=== PATIENT | male | born 1935 | race Caucasian/White ===

== ENCOUNTER 2019-02-21 07:27 | Inpatient (IN) ==
[2019-02-21] MEDS ORDERED: PANTOPRAZOLE 40 MG VIAL IV STA (09:09)
[2019-02-21] MEDS ORDERED: SODIUM CHLORIDE 0.9% 500 ML IV STA (09:09)
[2019-02-21 09:23] LABS: Basophils # 0.1 10*3/uL (0.0-0.2); Basophils % 0.9 % (0.0-0.8); Eosinophils # 0.1 10*3/uL (0.0-0.87); Eosinophils % 1.1 % (0.00-10.9); Hematocrit 36.3 VOL% (42.0-52.0); Hemoglobin 11.3 GM/DL (14.0-18.0); Immature Granulocytes % 0.5 %; Immature Granulocytes Absolute 0.05 #; Lymphocytes # 1.7 10*3/uL (1.4-4.0); Lymphocytes % 16.1 % (21.2-54.2); Mean Corpuscular HGB Conc 31.1 GM/DL (32-36); Mean Corpuscular Volume 80.7 FL (87-102); Mean Platelet Volume 9.1 FL (9.6-12.0); Monocytes % 6.4 % (1.7-12.7); Platelet Count 324 T/CUMM (130-400); Red Cell Distribution Width 13.5 % (9.3-17.3); White Blood Count 10.6 T/CUMM (4-12)
[2019-02-21 09:34] LABS: PT Patient Result 10.4 SECS; Partial Thromboplastin Time 27.1 SECS (0-40)
[2019-02-21 09:55] LABS: Albumin 3.5 G/DL (3.4-5.0); Bilirubin,Total 0.7 MG/DL (0.2-1.0); Calcium 9.8 MG/DL (8.5-10.1); Osmolality,Calculated 275.8 MOS/KG (273-304); Total Protein 7.9 G/DL (6.4-8.3)
[2019-02-21] MEDS ORDERED: ACETAMINOPHEN 325 MG TABLET PO PRN (12:05)
[2019-02-21] MEDS ORDERED: ONDANSETRON 4 MG/2 ML VIAL IV PRN (12:05)
[2019-02-21] MEDS: SODIUM CHLORIDE 0.9% 1,000 ML IV SCH (12:47)
[2019-02-21] MEDS: SIMVASTATIN 20 MG TABLET PO SCH (22:01)
[2019-02-21] MEDS: DOCUSATE SODIUM 100 MG CAPSULE PO SCH (22:01)
[2019-02-21 22:24] LABS: Apearance,Urine CLEAR (Clear); Bilirubin,Urine Negative (Negative); Blood, Urine Negative (Negative); Glucose,Urine (UA) Negative (Negative); Ketones,Urine Negative (Negative); Mucus,Urine Occasional /LPF (Occasional); Nitrite,Urine Negative (Negative); Protein,Urine Negative; RBC,Urine 1 /HPF (0-4); Urine Color Yellow (Yellow); Urine Specific Gravity 1.018 (1.001-1.035); Urine Urobilinogen < 2.0 EU/DL (0.2-1.0)
[2019-02-22] MEDS: SODIUM CHLORIDE 0.9% 1,000 ML IV SCH ×2 (00:33→05:19)
[2019-02-22 05:51] LABS: Basophils # 0.1 10*3/uL (0.0-0.2); Basophils % 0.8 % (0.0-0.8); Eosinophils # 0.3 10*3/uL (0.0-0.87); Eosinophils % 3.3 % (0.00-10.9); Hematocrit 29.4 VOL% (42.0-52.0); Hemoglobin 9.3 GM/DL (14.0-18.0); Immature Granulocytes % 0.4 %; Immature Granulocytes Absolute 0.04 #; Lymphocytes # 1.7 10*3/uL (1.4-4.0); Lymphocytes % 18.7 % (21.2-54.2); Mean Corpuscular HGB Conc 31.6 GM/DL (32-36); Mean Corpuscular Volume 80.1 FL (87-102); Mean Platelet Volume 9.6 FL (9.6-12.0); Neutrophils % 68.8 % (38.7-73.9); Platelet Count 262 T/CUMM (130-400); Red Blood Count 3.67 MC/CUMM (3.8-5.5); Red Cell Distribution Width 13.5 % (9.3-17.3); White Blood Count 9.1 T/CUMM (4-12)
[2019-02-22 06:27] LABS: Albumin 2.8 G/DL (3.4-5.0); Bilirubin,Total 0.5 MG/DL (0.2-1.0); Calcium 8.5 MG/DL (8.5-10.1); Osmolality,Calculated 276.7 MOS/KG (273-304); Risk Ratio 4.85; Thyroid Stimulating Hormone 3.71 uIU/ml (0.358-3.74); Total Protein 6.5 G/DL (6.4-8.3)
[2019-02-22] MEDS ORDERED: LACTATED RINGERS 1,000 ML IV SCH (08:00)
[2019-02-22] MEDS ORDERED: POTASSIUM CHLORIDE INJ 20 MEQ in SODIUM CHLORIDE 0.9% 1,000 ML IV SCH (08:48)
[2019-02-22] MEDS: DOCUSATE SODIUM 100 MG CAPSULE PO SCH ×2 (09:01→20:30)
[2019-02-22] MEDS: PANTOPRAZOLE 40 MG TABLET PO SCH (09:06)
[2019-02-22] MEDS: LISINOPRIL/HCTZ 20-12.5 MG TABLET PO SCH (09:06)
[2019-02-22] MEDS ORDERED: LIDOCAINE 100 MG/5 ML SYRINGE ONE (10:00)
[2019-02-22] MEDS ORDERED: PROPOFOL 200 MG/20 ML VIAL IV ONE (10:00)
[2019-02-22] MEDS: SODIUM CHLOR 0.9% KCL 20 MEQ 20 MEQ/1,000 ML BAG IV SCH ×2 (13:24→21:24)
[2019-02-22] MEDS: SIMVASTATIN 20 MG TABLET PO SCH (20:30)
[2019-02-23 04:25] LABS: Basophils # 0.1 10*3/uL (0.0-0.2); Basophils % 0.8 % (0.0-0.8); Eosinophils # 0.3 10*3/uL (0.0-0.87); Eosinophils % 3.5 % (0.00-10.9); Hematocrit 29.7 VOL% (42.0-52.0); Hemoglobin 9.2 GM/DL (14.0-18.0); Immature Granulocytes % 0.4 %; Immature Granulocytes Absolute 0.04 #; Lymphocytes # 1.3 10*3/uL (1.4-4.0); Lymphocytes % 14.3 % (21.2-54.2); Mean Corpuscular Volume 80.9 FL (87-102); Mean Platelet Volume 9.4 FL (9.6-12.0); Monocytes % 8.1 % (1.7-12.7); Neutrophils % 72.9 % (38.7-73.9); Platelet Count 228 T/CUMM (130-400); Red Blood Count 3.67 MC/CUMM (3.8-5.5); Red Cell Distribution Width 13.6 % (9.3-17.3); White Blood Count 8.9 T/CUMM (4-12)
[2019-02-23 04:54] LABS: Osmolality,Calculated 280.4 MOS/KG (273-304)
[2019-02-23] MEDS: SODIUM CHLOR 0.9% KCL 20 MEQ 20 MEQ/1,000 ML BAG IV SCH ×4 (05:35→20:55)
[2019-02-23] MEDS: DOCUSATE SODIUM 100 MG CAPSULE PO SCH ×2 (09:30→20:17)
[2019-02-23] MEDS: PANTOPRAZOLE 40 MG TABLET PO SCH (09:30)
[2019-02-23] MEDS: LISINOPRIL/HCTZ 20-12.5 MG TABLET PO SCH (09:30)
[2019-02-23] MEDS: SIMVASTATIN 20 MG TABLET PO SCH (20:18)
[2019-02-24 06:06] LABS: Basophils # 0.1 10*3/uL (0.0-0.2); Basophils % 0.7 % (0.0-0.8); Eosinophils # 0.3 10*3/uL (0.0-0.87); Eosinophils % 3.7 % (0.00-10.9); Hematocrit 29.2 VOL% (42.0-52.0); Immature Granulocytes % 0.3 %; Immature Granulocytes Absolute 0.03 #; Lymphocytes # 1.2 10*3/uL (1.4-4.0); Lymphocytes % 13.7 % (21.2-54.2); Mean Corpuscular HGB Conc 30.8 GM/DL (32-36); Mean Platelet Volume 9.6 FL (9.6-12.0); Monocytes % 9.4 % (1.7-12.7); Neutrophils % 72.2 % (38.7-73.9); Platelet Count 224 T/CUMM (130-400); Red Blood Count 3.56 MC/CUMM (3.8-5.5); Red Cell Distribution Width 13.7 % (9.3-17.3); White Blood Count 8.6 T/CUMM (4-12)
[2019-02-24] MEDS: SODIUM CHLOR 0.9% KCL 20 MEQ 20 MEQ/1,000 ML BAG IV SCH (06:40)
[2019-02-24] MEDS: LISINOPRIL/HCTZ 20-12.5 MG TABLET PO SCH (09:03)
[2019-02-24] MEDS: PANTOPRAZOLE 40 MG TABLET PO SCH (09:03)
[2019-02-24] MEDS: DOCUSATE SODIUM 100 MG CAPSULE PO SCH (09:03)
[2019-02-24] MEDS: LANSOPRAZOLE ODT 30 MG TABLET PO SCH ×2 (12:39→21:00)
[2019-02-24] MEDS ORDERED: BISACODYL 5 MG TABLET PO ONE (14:00)
[2019-02-24] MEDS ORDERED: POLYETHYLENE GLYCOL POWDER 255 GM BOTTLE PO ONE (15:00)
[2019-02-24] MEDS: DEXTROSE 5% NACL 0.45% 1,000 ML IV SCH (16:30)
[2019-02-24] MEDS: SIMVASTATIN 20 MG TABLET PO SCH (20:59)
[2019-02-24 21:17] LABS: Apearance,Urine CLEAR (Clear); Bacteria,Urine Occasional /HPF (Few); Bilirubin,Urine Negative (Negative); Blood, Urine Negative (Negative); Glucose,Urine (UA) Negative (Negative); Ketones,Urine Negative (Negative); Mucus,Urine Occasional /LPF (Occasional); Nitrite,Urine Negative (Negative); Protein,Urine Negative; RBC,Urine <1 /HPF (0-4); Squamous Epithelial Cell,Urine Occasional /HPF (0-10); Urine Color Yellow (Yellow); Urine Specific Gravity 1.009 (1.001-1.035); Urine Urobilinogen < 2.0 EU/DL (0.2-1.0); WBC,Urine <1 /HPF (0-6)
[2019-02-25] MEDS: DEXTROSE 5% NACL 0.45% 1,000 ML IV SCH (03:30)
[2019-02-25 05:20] LABS: Basophils # 0.1 10*3/uL (0.0-0.2); Basophils % 0.5 % (0.0-0.8); Eosinophils # 0.1 10*3/uL (0.0-0.87); Eosinophils % 1.3 % (0.00-10.9); Hematocrit 26.4 VOL% (42.0-52.0); Hemoglobin 8.3 GM/DL (14.0-18.0); Immature Granulocytes % 0.5 %; Immature Granulocytes Absolute 0.05 #; Lymphocytes # 0.7 10*3/uL (1.4-4.0); Lymphocytes % 6.6 % (21.2-54.2); Mean Corpuscular HGB Conc 31.4 GM/DL (32-36); Mean Corpuscular Volume 79.3 FL (87-102); Mean Platelet Volume 9.7 FL (9.6-12.0); Monocytes % 7.4 % (1.7-12.7); Neutrophils % 83.7 % (38.7-73.9); Platelet Count 216 T/CUMM (130-400); Red Blood Count 3.33 MC/CUMM (3.8-5.5); Red Cell Distribution Width 13.8 % (9.3-17.3); White Blood Count 9.8 T/CUMM (4-12)
[2019-02-25 05:57] LABS: Albumin 2.5 G/DL (3.4-5.0); Bilirubin,Total 0.8 MG/DL (0.2-1.0); Osmolality,Calculated 279.5 MOS/KG (273-304); Total Protein 5.8 G/DL (6.4-8.3)
[2019-02-25] MEDS ORDERED: MAGNESIUM CITRATE 300 ML BOTTLE PO ONE (06:00)
[2019-02-25] MEDS ORDERED: POTASSIUM CHLORIDE INJ 20 MEQ in DEXTROSE 5% NACL 0.45% 1,000 ML IV SCH (07:54)
[2019-02-25] MEDS: LANSOPRAZOLE ODT 30 MG TABLET PO SCH ×2 (09:26→20:59)
[2019-02-25] MEDS: DEXT 5% NACL 0.45% KCL 20 MEQ 20 MEQ/1,000 ML BAG IV SCH ×2 (09:35→18:45)
[2019-02-25] MEDS ORDERED: PROPOFOL 200 MG/20 ML VIAL IV ONE (10:49)
[2019-02-25] MEDS ORDERED: PHENYLEPHRINE 1 MG/10 ML SYRINGE IV ONE (10:49)
[2019-02-25] MEDS ORDERED: LIDOCAINE 1% 5 ML VIAL ONE (10:49)
[2019-02-25] MEDS ORDERED: VANCOMYCIN INJ 1,000 MG in SODIUM CHLORIDE 0.9% 250 ML IV ONE ×2 (10:52→11:00)
[2019-02-25] MEDS: TAMSULOSIN 0.4 MG CAPSULE PO SCH ×2 (15:42→20:57)
[2019-02-25] MEDS: DUTASTERIDE 0.5 MG CAPSULE PO SCH (15:42)
[2019-02-25] MEDS: POTASSIUM CHLORIDE RIDER 10 MEQ in PREMIX 1 EACH IV PRN ×4 (15:47→22:41)
[2019-02-25] MEDS: SIMVASTATIN 20 MG TABLET PO SCH (20:58)
[2019-02-26 04:50] LABS: Basophils % 0.5 % (0.0-0.8); Eosinophils # 0.2 10*3/uL (0.0-0.87); Eosinophils % 2.6 % (0.00-10.9); Hematocrit 23.2 VOL% (42.0-52.0); Hemoglobin 7.3 GM/DL (14.0-18.0); Immature Granulocytes % 0.5 %; Immature Granulocytes Absolute 0.03 #; Lymphocytes # 0.9 10*3/uL (1.4-4.0); Lymphocytes % 13.3 % (21.2-54.2); Mean Corpuscular HGB Conc 31.5 GM/DL (32-36); Mean Corpuscular Volume 79.7 FL (87-102); Mean Platelet Volume 9.8 FL (9.6-12.0); Monocytes % 13.3 % (1.7-12.7); Neutrophils % 69.8 % (38.7-73.9); Platelet Count 172 T/CUMM (130-400); Red Blood Count 2.91 MC/CUMM (3.8-5.5); Red Cell Distribution Width 13.8 % (9.3-17.3); White Blood Count 6.6 T/CUMM (4-12)
[2019-02-26] MEDS: POTASSIUM CHLORIDE RIDER 10 MEQ in PREMIX 1 EACH IV PRN ×2 (05:00→06:28)
[2019-02-26] MEDS: DEXT 5% NACL 0.45% KCL 20 MEQ 20 MEQ/1,000 ML BAG IV SCH ×2 (05:00→18:37)
[2019-02-26 05:15] LABS: Calcium 7.6 MG/DL (8.5-10.1); Osmolality,Calculated 274.8 MOS/KG (273-304)
[2019-02-26] MEDS ORDERED: LIDOCAINE 1%/EPI INJ 20 ML VIAL ONE (09:16)
[2019-02-26] MEDS ORDERED: BUPIVACAINE MPF 0.25% /EPI 30 ML VIAL ONE (09:16)
[2019-02-26] MEDS ORDERED: LACTATED RINGERS 1,000 ML IV SCH (10:00)
[2019-02-26] MEDS ORDERED: fentaNYL 100 MCG/2 ML VIAL ONE (11:29)
[2019-02-26] MEDS ORDERED: PROPOFOL 200 MG/20 ML VIAL IV ONE (11:29)
[2019-02-26] MEDS ORDERED: SEVOFLURANE 1 UNIT/15 MINUTE INH ONE (11:29)
[2019-02-26] MEDS ORDERED: ONDANSETRON 4 MG/2 ML VIAL ONE (11:30)
[2019-02-26] MEDS ORDERED: KETAMINE 500 MG/10 ML VIAL ONE (11:30)
[2019-02-26] MEDS ORDERED: DEXAMETHASONE 4 MG/1 ML VIAL ONE (11:30)
[2019-02-26] MEDS ORDERED: ePHEDrine 50 MG/ML AMP ONE (11:30)
[2019-02-26] MEDS ORDERED: ETOMIDATE 40 MG/20 ML VIAL IV ONE (11:31)
[2019-02-26] MEDS ORDERED: PHENYLEPHRINE 1 MG/10 ML SYRINGE IV ONE (11:31)
[2019-02-26] MEDS: LANSOPRAZOLE ODT 30 MG TABLET PO SCH ×2 (12:55→22:12)
[2019-02-26] MEDS: DUTASTERIDE 0.5 MG CAPSULE PO SCH (12:55)
[2019-02-26] MEDS: TAMSULOSIN 0.4 MG CAPSULE PO SCH ×2 (12:55→22:11)
[2019-02-26] MEDS: SIMVASTATIN 20 MG TABLET PO SCH (22:11)
[2019-02-27 04:51] LABS: Basophils % 0.1 % (0.0-0.8); Eosinophils % 0.2 % (0.00-10.9); Hematocrit 23.7 VOL% (42.0-52.0); Hemoglobin 7.7 GM/DL (14.0-18.0); Immature Granulocytes % 0.5 %; Immature Granulocytes Absolute 0.04 #; Lymphocytes # 0.9 10*3/uL (1.4-4.0); Lymphocytes % 10.8 % (21.2-54.2); Mean Corpuscular HGB Conc 32.5 GM/DL (32-36); Mean Platelet Volume 10.4 FL (9.6-12.0); Monocytes % 9.1 % (1.7-12.7); Neutrophils % 79.3 % (38.7-73.9); Platelet Count 189 T/CUMM (130-400); Red Cell Distribution Width 13.9 % (9.3-17.3); White Blood Count 8.7 T/CUMM (4-12)
[2019-02-27] MEDS: DEXT 5% NACL 0.45% KCL 20 MEQ 20 MEQ/1,000 ML BAG IV SCH ×2 (04:55→19:02)
[2019-02-27 05:34] LABS: Albumin 2.1 G/DL (3.4-5.0); Bilirubin,Total 1.1 MG/DL (0.2-1.0); Calcium 8.1 MG/DL (8.5-10.1); Osmolality,Calculated 277.5 MOS/KG (273-304); Total Protein 5.4 G/DL (6.4-8.3)
[2019-02-27] MEDS: DUTASTERIDE 0.5 MG CAPSULE PO SCH (08:33)
[2019-02-27] MEDS: TAMSULOSIN 0.4 MG CAPSULE PO SCH ×2 (08:33→20:17)
[2019-02-27] MEDS: LANSOPRAZOLE ODT 30 MG TABLET PO SCH ×2 (08:33→20:18)
[2019-02-27] MEDS: SIMVASTATIN 20 MG TABLET PO SCH (20:17)
[2019-02-28] MEDS: DEXT 5% NACL 0.45% KCL 20 MEQ 20 MEQ/1,000 ML BAG IV SCH ×2 (01:27→11:51)
[2019-02-28 06:03] LABS: Basophils # 0.1 10*3/uL (0.0-0.2); Basophils % 0.6 % (0.0-0.8); Eosinophils # 0.5 10*3/uL (0.0-0.87); Eosinophils % 5.1 % (0.00-10.9); Hematocrit 24.5 VOL% (42.0-52.0); Hemoglobin 7.9 GM/DL (14.0-18.0); Immature Granulocytes % 0.6 %; Immature Granulocytes Absolute 0.05 #; Lymphocytes # 1.5 10*3/uL (1.4-4.0); Lymphocytes % 16.9 % (21.2-54.2); Mean Corpuscular HGB Conc 32.2 GM/DL (32-36); Mean Corpuscular Volume 78.5 FL (87-102); Mean Platelet Volume 10.1 FL (9.6-12.0); Monocytes % 9.4 % (1.7-12.7); Neutrophils % 67.4 % (38.7-73.9); Platelet Count 232 T/CUMM (130-400); Red Blood Count 3.12 MC/CUMM (3.8-5.5); Red Cell Distribution Width 13.8 % (9.3-17.3); White Blood Count 8.8 T/CUMM (4-12)
[2019-02-28 06:27] LABS: Eosinophils 2 % (0-10); Lymphocytes 15 % (20-55); Segmented Neutrophils 80 % (50-85); Total Cells Counted 100
[2019-02-28 06:28] LABS: Anisocytosis Slight; Microcytosis 2+
[2019-02-28 06:29] LABS: Polychromasia Slight
[2019-02-28 06:31] LABS: Hypochromasia Slight; Platelet Estimate Normal
[2019-02-28] MEDS ORDERED: LIDOCAINE 2% TOP JELLY 20 ML VIAL INTRAURETH ONE ×2 (07:17→08:17)
[2019-02-28] MEDS: TAMSULOSIN 0.4 MG CAPSULE PO SCH ×2 (09:29→20:29)
[2019-02-28] MEDS: DUTASTERIDE 0.5 MG CAPSULE PO SCH (09:29)
[2019-02-28] MEDS: LANSOPRAZOLE ODT 30 MG TABLET PO SCH ×2 (09:29→20:30)
[2019-02-28] MEDS ORDERED: VANCOMYCIN INJ 1,500 MG in SODIUM CHLORIDE 0.9% 500 ML IV ONE (10:00)
[2019-02-28] MEDS: traZODone 50 MG TABLET PO PRN (20:28)
[2019-02-28] MEDS: SIMVASTATIN 20 MG TABLET PO SCH (20:29)
[2019-02-28] MEDS: VANCOMYCIN INJ 1,250 MG in SODIUM CHLORIDE 0.9% 250 ML IV SCH (22:19)
[2019-03-01] MEDS: DEXT 5% NACL 0.45% KCL 20 MEQ 20 MEQ/1,000 ML BAG IV SCH ×3 (04:27→18:14)
[2019-03-01] MEDS: DUTASTERIDE 0.5 MG CAPSULE PO SCH (09:16)
[2019-03-01] MEDS: VANCOMYCIN INJ 1,250 MG in SODIUM CHLORIDE 0.9% 250 ML IV SCH ×2 (09:16→21:24)
[2019-03-01] MEDS: LANSOPRAZOLE ODT 30 MG TABLET PO SCH ×2 (09:16→20:40)
[2019-03-01] MEDS: TAMSULOSIN 0.4 MG CAPSULE PO SCH ×2 (09:16→20:40)
[2019-03-01] MEDS: traZODone 50 MG TABLET PO PRN (20:40)
[2019-03-01] MEDS: SIMVASTATIN 20 MG TABLET PO SCH (20:40)
[2019-03-02] MEDS: DEXT 5% NACL 0.45% KCL 20 MEQ 20 MEQ/1,000 ML BAG IV SCH ×2 (06:15→22:00)
[2019-03-02] MEDS: DUTASTERIDE 0.5 MG CAPSULE PO SCH (10:12)
[2019-03-02] MEDS: VANCOMYCIN INJ 1,250 MG in SODIUM CHLORIDE 0.9% 250 ML IV SCH (10:12)
[2019-03-02] MEDS: LANSOPRAZOLE ODT 30 MG TABLET PO SCH ×2 (10:12→20:48)
[2019-03-02] MEDS: TAMSULOSIN 0.4 MG CAPSULE PO SCH ×2 (10:12→20:48)
[2019-03-02 13:21] LABS: Basophils # 0.1 10*3/uL (0.0-0.2); Basophils % 0.5 % (0.0-0.8); Eosinophils # 0.3 10*3/uL (0.0-0.87); Eosinophils % 2.9 % (0.00-10.9); Hematocrit 23.6 VOL% (42.0-52.0); Hemoglobin 7.6 GM/DL (14.0-18.0); Immature Granulocytes % 0.6 %; Immature Granulocytes Absolute 0.06 #; Lymphocytes # 1.5 10*3/uL (1.4-4.0); Lymphocytes % 14.8 % (21.2-54.2); Mean Corpuscular HGB Conc 32.2 GM/DL (32-36); Mean Corpuscular Volume 79.5 FL (87-102); Mean Platelet Volume 9.7 FL (9.6-12.0); Monocytes % 5.9 % (1.7-12.7); Neutrophils % 75.3 % (38.7-73.9); Platelet Count 228 T/CUMM (130-400); Red Blood Count 2.97 MC/CUMM (3.8-5.5); White Blood Count 10.1 T/CUMM (4-12)
[2019-03-02] MEDS ORDERED: SODIUM CHLORIDE 0.9% 1,000 ML IV PRN (14:00)
[2019-03-02] MEDS: traZODone 50 MG TABLET PO PRN (20:48)
[2019-03-02] MEDS: SIMVASTATIN 20 MG TABLET PO SCH (20:48)
[2019-03-03] MEDS: DEXT 5% NACL 0.45% KCL 20 MEQ 20 MEQ/1,000 ML BAG IV SCH ×3 (03:34→23:22)
[2019-03-03] MEDS: VANCOMYCIN INJ 1,250 MG in SODIUM CHLORIDE 0.9% 250 ML IV SCH ×2 (03:35→23:23)
[2019-03-03 05:05] LABS: Basophils # 0.1 10*3/uL (0.0-0.2); Basophils % 0.6 % (0.0-0.8); Eosinophils # 0.5 10*3/uL (0.0-0.87); Eosinophils % 5.8 % (0.00-10.9); Hematocrit 29.5 VOL% (42.0-52.0); Hemoglobin 9.3 GM/DL (14.0-18.0); Immature Granulocytes % 0.6 %; Immature Granulocytes Absolute 0.05 #; Lymphocytes # 1.5 10*3/uL (1.4-4.0); Lymphocytes % 16.4 % (21.2-54.2); Mean Corpuscular HGB Conc 31.5 GM/DL (32-36); Mean Corpuscular Volume 82.2 FL (87-102); Mean Platelet Volume 9.6 FL (9.6-12.0); Monocytes % 6.3 % (1.7-12.7); Neutrophils % 70.3 % (38.7-73.9); Platelet Count 229 T/CUMM (130-400); Red Blood Count 3.59 MC/CUMM (3.8-5.5); Red Cell Distribution Width 14.3 % (9.3-17.3); White Blood Count 8.8 T/CUMM (4-12)
[2019-03-03] MEDS: LANSOPRAZOLE ODT 30 MG TABLET PO SCH ×2 (11:27→20:27)
[2019-03-03] MEDS: TAMSULOSIN 0.4 MG CAPSULE PO SCH ×2 (11:27→20:26)
[2019-03-03] MEDS: DUTASTERIDE 0.5 MG CAPSULE PO SCH (11:27)
[2019-03-03] MEDS: SIMVASTATIN 20 MG TABLET PO SCH (20:26)
[2019-03-03] MEDS: traZODone 50 MG TABLET PO PRN (20:26)
[2019-03-04 05:14] LABS: Osmolality,Calculated 280.1 MOS/KG (273-304)
[2019-03-04] MEDS: LANSOPRAZOLE ODT 30 MG TABLET PO SCH ×2 (08:39→20:33)
[2019-03-04] MEDS: POTASSIUM CHLORIDE 20 MEQ TABLET PO PRN ×2 (08:39→16:41)
[2019-03-04] MEDS: DUTASTERIDE 0.5 MG CAPSULE PO SCH (08:39)
[2019-03-04] MEDS: TAMSULOSIN 0.4 MG CAPSULE PO SCH ×2 (08:39→20:33)
[2019-03-04] MEDS: DEXT 5% NACL 0.45% KCL 20 MEQ 20 MEQ/1,000 ML BAG IV SCH (12:31)
[2019-03-04] MEDS: VANCOMYCIN INJ 1,250 MG in SODIUM CHLORIDE 0.9% 250 ML IV SCH (16:40)
[2019-03-04] MEDS: traZODone 50 MG TABLET PO PRN (20:33)
[2019-03-04] MEDS: SIMVASTATIN 20 MG TABLET PO SCH (20:33)
[2019-03-05 04:44] LABS: Basophils # 0.1 10*3/uL (0.0-0.2); Basophils % 0.9 % (0.0-0.8); Eosinophils # 0.5 10*3/uL (0.0-0.87); Eosinophils % 6.3 % (0.00-10.9); Hematocrit 33.4 VOL% (42.0-52.0); Hemoglobin 10.3 GM/DL (14.0-18.0); Immature Granulocytes % 1.1 %; Immature Granulocytes Absolute 0.09 #; Lymphocytes # 1.3 10*3/uL (1.4-4.0); Lymphocytes % 15.2 % (21.2-54.2); Mean Corpuscular HGB Conc 30.8 GM/DL (32-36); Mean Corpuscular Volume 82.3 FL (87-102); Mean Platelet Volume 9.1 FL (9.6-12.0); Monocytes % 7.4 % (1.7-12.7); Neutrophils % 69.1 % (38.7-73.9); Platelet Count 318 T/CUMM (130-400); Red Blood Count 4.06 MC/CUMM (3.8-5.5); Red Cell Distribution Width 14.7 % (9.3-17.3); White Blood Count 8.5 T/CUMM (4-12)
[2019-03-05 04:45] LABS: Calcium 8.9 MG/DL (8.5-10.1); Osmolality,Calculated 278.3 MOS/KG (273-304)
[2019-03-05] MEDS: DEXT 5% NACL 0.45% KCL 20 MEQ 20 MEQ/1,000 ML BAG IV SCH ×2 (06:34→17:01)
[2019-03-05] MEDS: SULFAMETHOX/TRIMETHOPRIM 800-160 MG TABLET PO SCH ×2 (09:26→21:57)
[2019-03-05] MEDS: LANSOPRAZOLE ODT 30 MG TABLET PO SCH ×2 (09:26→21:57)
[2019-03-05] MEDS: TAMSULOSIN 0.4 MG CAPSULE PO SCH ×2 (09:26→21:57)
[2019-03-05] MEDS: DUTASTERIDE 0.5 MG CAPSULE PO SCH (09:27)
[2019-03-05] MEDS: traZODone 50 MG TABLET PO PRN (21:56)
[2019-03-05] MEDS: SIMVASTATIN 20 MG TABLET PO SCH (21:57)
[2019-03-06 04:51] LABS: Basophils # 0.1 10*3/uL (0.0-0.2); Eosinophils # 0.6 10*3/uL (0.0-0.87); Eosinophils % 8.3 % (0.00-10.9); Hematocrit 29.2 VOL% (42.0-52.0); Hemoglobin 9.3 GM/DL (14.0-18.0); Immature Granulocytes Absolute 0.07 #; Lymphocytes # 1.7 10*3/uL (1.4-4.0); Lymphocytes % 25.9 % (21.2-54.2); Mean Corpuscular HGB Conc 31.8 GM/DL (32-36); Mean Corpuscular Volume 81.8 FL (87-102); Mean Platelet Volume 8.9 FL (9.6-12.0); Monocytes % 7.9 % (1.7-12.7); Neutrophils % 55.9 % (38.7-73.9); Platelet Count 266 T/CUMM (130-400); Red Blood Count 3.57 MC/CUMM (3.8-5.5); Red Cell Distribution Width 14.8 % (9.3-17.3); White Blood Count 6.7 T/CUMM (4-12)
[2019-03-06] MEDS: TAMSULOSIN 0.4 MG CAPSULE PO SCH ×2 (08:30→21:22)
[2019-03-06] MEDS: SULFAMETHOX/TRIMETHOPRIM 800-160 MG TABLET PO SCH ×2 (08:31→21:21)
[2019-03-06] MEDS: DUTASTERIDE 0.5 MG CAPSULE PO SCH (08:31)
[2019-03-06] MEDS: LANSOPRAZOLE ODT 30 MG TABLET PO SCH ×2 (08:31→21:22)
[2019-03-06] MEDS ORDERED: LIDOCAINE 2% TOP JELLY 20 ML VIAL INTRAURETH ONE (13:18)
[2019-03-06] MEDS: SIMVASTATIN 20 MG TABLET PO SCH (21:22)
[2019-03-07 04:54] LABS: Basophils # 0.1 10*3/uL (0.0-0.2); Eosinophils # 0.6 10*3/uL (0.0-0.87); Eosinophils % 8.2 % (0.00-10.9); Hematocrit 30.4 VOL% (42.0-52.0); Hemoglobin 9.8 GM/DL (14.0-18.0); Immature Granulocytes % 0.7 %; Immature Granulocytes Absolute 0.05 #; Lymphocytes # 1.7 10*3/uL (1.4-4.0); Lymphocytes % 24.4 % (21.2-54.2); Mean Corpuscular HGB Conc 32.2 GM/DL (32-36); Mean Corpuscular Volume 81.3 FL (87-102); Mean Platelet Volume 9.4 FL (9.6-12.0); Monocytes % 7.5 % (1.7-12.7); Neutrophils % 58.2 % (38.7-73.9); Platelet Count 280 T/CUMM (130-400); Red Blood Count 3.74 MC/CUMM (3.8-5.5); White Blood Count 6.9 T/CUMM (4-12)
[2019-03-07 05:27] LABS: Albumin 2.4 G/DL (3.4-5.0); Bilirubin,Total 0.4 MG/DL (0.2-1.0); Calcium 8.6 MG/DL (8.5-10.1); Osmolality,Calculated 274.5 MOS/KG (273-304); Total Protein 6.3 G/DL (6.4-8.3)
[2019-03-07] MEDS: SULFAMETHOX/TRIMETHOPRIM 800-160 MG TABLET PO SCH (09:08)
[2019-03-07] MEDS: TAMSULOSIN 0.4 MG CAPSULE PO SCH (09:08)
[2019-03-07] MEDS: DUTASTERIDE 0.5 MG CAPSULE PO SCH (09:08)
[2019-03-07] MEDS: LANSOPRAZOLE ODT 30 MG TABLET PO SCH (09:08)
[2019-03-07 12:20] VITALS: BP 125/83
== END 2019-03-07 13:13 | disposition home health service (06) | DRG 356 ==
LOC: N.ED 07:27 → N.EDINP 10:49 → N.2E 11:07
PROVIDERS: ADMIT Family Medicine; ATTEND Family Medicine
PROC: COLONBX (2019-02-25 13:50)

== ENCOUNTER 2019-04-08 21:02 | Inpatient (IN) ==
[2019-04-08] MEDS ORDERED: SODIUM CHLORIDE 0.9% 1,000 ML IV STA ×2 (21:38→23:50)
[2019-04-08] MEDS ORDERED: ONDANSETRON 4 MG/2 ML VIAL IV STA (21:38)
[2019-04-08] MEDS ORDERED: MECLIZINE 25 MG TABLET PO STA (21:38)
[2019-04-08 22:17] LABS: Basophils # 0.1 10*3/uL (0.0-0.2); Basophils % 0.3 % (0.0-0.8); Hematocrit 32.2 VOL% (42.0-52.0); Hemoglobin 10.2 GM/DL (14.0-18.0); Immature Granulocytes % 1.1 %; Immature Granulocytes Absolute 0.23 #; Lymphocytes # 0.8 10*3/uL (1.4-4.0); Lymphocytes % 3.9 % (21.2-54.2); Mean Corpuscular HGB Conc 31.7 GM/DL (32-36); Mean Corpuscular Volume 78.9 FL (87-102); Mean Platelet Volume 9.2 FL (9.6-12.0); Monocytes % 6.9 % (1.7-12.7); Neutrophils % 87.8 % (38.7-73.9); Platelet Count 310 T/CUMM (130-400); Red Blood Count 4.08 MC/CUMM (3.8-5.5); Red Cell Distribution Width 15.9 % (9.3-17.3); White Blood Count 21.3 T/CUMM (4-12)
[2019-04-08 22:25] LABS: PT Patient Result 10.8 SECS
[2019-04-08 22:36] LABS: Albumin 2.6 G/DL (3.4-5.0); Bilirubin,Total 0.5 MG/DL (0.2-1.0); Calcium 8.8 MG/DL (8.5-10.1); Osmolality,Calculated 272.4 MOS/KG (273-304); Total Protein 7.6 G/DL (6.4-8.3)
[2019-04-08 22:41] LABS: Band Neutrophils 8 % (0-10); Lymphocytes 7 % (20-55); Segmented Neutrophils 82 % (50-85); Total Cells Counted 100
[2019-04-08 22:42] LABS: Anisocytosis 1+; Platelet Estimate Adequate
[2019-04-08 23:57] LABS: Apearance,Urine CLOUDY (Clear); Bacteria,Urine Many /HPF (Few); Bilirubin,Urine Negative (Negative); Blood, Urine Small mg/dL (Negative); Glucose,Urine (UA) Negative (Negative); Hyaline Casts,Urine 9 /LPF (0-3); Ketones,Urine Negative (Negative); Mucus,Urine Occasional /LPF (Occasional); Nitrite,Urine Negative (Negative); Protein,Urine Negative; RBC,Urine 51 /HPF (0-4); Urine Color Amber (Yellow); Urine Specific Gravity 1.015 (1.001-1.035); WBC,Urine 180 /HPF (0-6)
[2019-04-09] MEDS ORDERED: MEROPENEM 1,000 MG in SODIUM CHLORIDE 0.9% 100 ML IV STA (00:01)
[2019-04-09] MEDS ORDERED: NOREPINEPHRINE 4 MG/4 ML VIAL IV ONE ×2 (01:09→01:10)
[2019-04-09] MEDS ORDERED: ACETAMINOPHEN 325 MG TABLET PO PRN (01:28)
[2019-04-09] MEDS ORDERED: NOREPINEPHRINE 8 MG in SODIUM CHLORIDE 0.9% 242 ML IV PRN (01:28)
[2019-04-09] MEDS ORDERED: ONDANSETRON 4 MG/2 ML VIAL IV PRN (01:28)
[2019-04-09] MEDS ORDERED: SODIUM CHLORIDE 0.9% 1,000 ML IV SCH (01:28)
[2019-04-09 04:27] LABS: Apearance,Urine CLEAR (Clear); Bacteria,Urine Occasional /HPF (Few); Bilirubin,Urine Negative (Negative); Blood, Urine Negative (Negative); Glucose,Urine (UA) Negative (Negative); Ketones,Urine Negative (Negative); Mucus,Urine Occasional /LPF (Occasional); Nitrite,Urine Positive (Negative); Protein,Urine Negative; RBC,Urine 2 /HPF (0-4); Squamous Epithelial Cell,Urine Occasional /HPF (0-10); Urine Color Yellow (Yellow); Urine Urobilinogen < 2.0 EU/DL (0.2-1.0); WBC,Urine 28 /HPF (0-6)
[2019-04-09 06:14] LABS: Basophils # 0.1 10*3/uL (0.0-0.2); Basophils % 0.3 % (0.0-0.8); Hematocrit 28.7 VOL% (42.0-52.0); Immature Granulocytes % 0.7 %; Immature Granulocytes Absolute 0.13 #; Lymphocytes % 5.7 % (21.2-54.2); Mean Corpuscular HGB Conc 31.4 GM/DL (32-36); Mean Corpuscular Volume 80.2 FL (87-102); Mean Platelet Volume 8.9 FL (9.6-12.0); Monocytes % 6.3 % (1.7-12.7); Platelet Count 237 T/CUMM (130-400); Red Blood Count 3.58 MC/CUMM (3.8-5.5); Red Cell Distribution Width 16.1 % (9.3-17.3); White Blood Count 17.8 T/CUMM (4-12)
[2019-04-09 06:44] LABS: Albumin 1.9 G/DL (3.4-5.0); Bilirubin,Total 0.7 MG/DL (0.2-1.0); Calcium 7.6 MG/DL (8.5-10.1); Osmolality,Calculated 276.8 MOS/KG (273-304)
[2019-04-09] MEDS ORDERED: POTASSIUM CHLORIDE INJ 20 MEQ in SODIUM CHLORIDE 0.9% 1,000 ML IV SCH (09:00)
[2019-04-09] MEDS: DOCUSATE SODIUM 100 MG CAPSULE PO SCH ×2 (09:22→22:00)
[2019-04-09] MEDS: DUTASTERIDE 0.5 MG CAPSULE PO SCH ×2 (09:22→22:00)
[2019-04-09] MEDS: PANTOPRAZOLE 40 MG TABLET PO SCH (09:22)
[2019-04-09] MEDS: TAMSULOSIN 0.4 MG CAPSULE PO SCH ×2 (09:22→22:00)
[2019-04-09] MEDS: SODIUM CHLOR 0.9% KCL 20 MEQ 20 MEQ/1,000 ML BAG IV SCH ×2 (09:23→17:18)
[2019-04-09] MEDS: NOREPINEPHRINE 8 MG in SODIUM CHLORIDE 0.9% 242 ML IV PRN (13:48)
[2019-04-09] MEDS: MEROPENEM 1,000 MG in SODIUM CHLORIDE 0.9% 100 ML IV SCH (14:11)
[2019-04-10] MEDS: SODIUM CHLOR 0.9% KCL 20 MEQ 20 MEQ/1,000 ML BAG IV SCH ×4 (01:29→18:43)
[2019-04-10] MEDS: MEROPENEM 1,000 MG in SODIUM CHLORIDE 0.9% 100 ML IV SCH (01:44)
[2019-04-10] MEDS: NOREPINEPHRINE 8 MG in SODIUM CHLORIDE 0.9% 242 ML IV PRN ×2 (04:16→23:05)
[2019-04-10 06:42] LABS: Albumin 1.7 G/DL (3.4-5.0); Bilirubin,Total 0.5 MG/DL (0.2-1.0); Calcium 7.7 MG/DL (8.5-10.1); Osmolality,Calculated 277.7 MOS/KG (273-304); Total Protein 5.8 G/DL (6.4-8.3)
[2019-04-10 06:43] LABS: Risk Ratio 3.43; VLDL CHOLESTEROL 15.6 MG/DL
[2019-04-10] MEDS: PANTOPRAZOLE 40 MG TABLET PO SCH (09:08)
[2019-04-10] MEDS: TAMSULOSIN 0.4 MG CAPSULE PO SCH ×2 (09:08→21:23)
[2019-04-10] MEDS: DUTASTERIDE 0.5 MG CAPSULE PO SCH ×2 (09:08→21:23)
[2019-04-10] MEDS: DOCUSATE SODIUM 100 MG CAPSULE PO SCH ×2 (09:08→21:23)
[2019-04-10] MEDS: LEVOFLOXACIN INJ 750 MG in PREMIX 1 EACH IV SCH (09:10)
[2019-04-11] MEDS: SODIUM CHLOR 0.9% KCL 20 MEQ 20 MEQ/1,000 ML BAG IV SCH (02:31)
[2019-04-11 05:20] LABS: Basophils # 0.1 10*3/uL (0.0-0.2); Basophils % 0.3 % (0.0-0.8); Eosinophils # 0.2 10*3/uL (0.0-0.87); Hemoglobin 9.6 GM/DL (14.0-18.0); Immature Granulocytes % 1.1 %; Immature Granulocytes Absolute 0.19 #; Lymphocytes # 1.5 10*3/uL (1.4-4.0); Lymphocytes % 8.8 % (21.2-54.2); Mean Corpuscular Volume 79.2 FL (87-102); Mean Platelet Volume 9.4 FL (9.6-12.0); Monocytes % 5.5 % (1.7-12.7); Neutrophils % 83.3 % (38.7-73.9); Platelet Count 259 T/CUMM (130-400); Red Blood Count 3.79 MC/CUMM (3.8-5.5); Red Cell Distribution Width 16.2 % (9.3-17.3); White Blood Count 17.2 T/CUMM (4-12)
[2019-04-11 05:37] LABS: Albumin 1.5 G/DL (3.4-5.0); Bilirubin,Total 0.8 MG/DL (0.2-1.0); Calcium 7.8 MG/DL (8.5-10.1); Osmolality,Calculated 279.5 MOS/KG (273-304); Total Protein 5.7 G/DL (6.4-8.3)
[2019-04-11] MEDS: DOCUSATE SODIUM 100 MG CAPSULE PO SCH ×2 (09:12→21:56)
[2019-04-11] MEDS: LEVOFLOXACIN INJ 750 MG in PREMIX 1 EACH IV SCH (09:12)
[2019-04-11] MEDS: DUTASTERIDE 0.5 MG CAPSULE PO SCH ×2 (09:12→22:02)
[2019-04-11] MEDS: PANTOPRAZOLE 40 MG TABLET PO SCH (09:12)
[2019-04-11] MEDS: TAMSULOSIN 0.4 MG CAPSULE PO SCH ×2 (09:12→21:56)
[2019-04-11] MEDS: METOPROLOL SUCCINATE XL 25 MG TABLET PO SCH ×2 (09:12→21:56)
[2019-04-11 09:36] LABS: Alanine Aminotransferase 27 U/L (16-61); Albumin 1.6 G/DL (3.4-5.0); Alkaline Phosphatase 93 U/L (45-117); Aspartate Amino Transferase 38 U/L (0-37); Bilirubin,Total < 0.39 MG/DL (0.2-1.0); Blood Urea Nitrogen 16 MG/DL (7-18); Calcium 8.2 MG/DL (8.5-10.1); Glucose 137 MG/DL (74-106); Osmolality,Calculated 281.4 MOS/KG (273-304)
[2019-04-11] MEDS: POTASSIUM CHLORIDE IV SCH ×2 (10:41→18:55)
[2019-04-11] MEDS: [UNRECOGNIZED DRUG - OTHER] IV SCH ×2 (10:41→18:55)
[2019-04-11] MEDS: MAGNESIUM SULF IV SCH ×2 (10:41→18:55)
[2019-04-11] MEDS ORDERED: HALOPERIDOL 5 MG/ML AMP IM ONE ×2 (14:00→15:37)
[2019-04-11] MEDS: ENOXAPARIN 30 MG/0.3 ML SYRINGE SUBCUT SCH (22:02)
[2019-04-12] MEDS ORDERED: METOPROLOL TARTRATE 5 MG/5 ML VIAL IV ONE ×2 (02:11→17:43)
[2019-04-12 04:33] LABS: Basophils % 0.3 % (0.0-0.8); Eosinophils # 0.1 10*3/uL (0.0-0.87); Eosinophils % 0.3 % (0.00-10.9); Hematocrit 28.5 VOL% (42.0-52.0); Hemoglobin 9.1 GM/DL (14.0-18.0); Immature Granulocytes % 1.3 %; Lymphocytes # 0.9 10*3/uL (1.4-4.0); Lymphocytes % 5.8 % (21.2-54.2); Mean Corpuscular HGB Conc 31.9 GM/DL (32-36); Mean Corpuscular Volume 78.3 FL (87-102); Mean Platelet Volume 9.2 FL (9.6-12.0); Neutrophils % 86.3 % (38.7-73.9); Platelet Count 275 T/CUMM (130-400); Red Blood Count 3.64 MC/CUMM (3.8-5.5); Red Cell Distribution Width 15.9 % (9.3-17.3); White Blood Count 15.8 T/CUMM (4-12)
[2019-04-12 04:51] LABS: Albumin 1.7 G/DL (3.4-5.0); Bilirubin,Total 0.6 MG/DL (0.2-1.0); Calcium 7.9 MG/DL (8.5-10.1); Osmolality,Calculated 281.4 MOS/KG (273-304); Total Protein 5.8 G/DL (6.4-8.3)
[2019-04-12 04:57] LABS: Band Neutrophils 3 % (0-10); Hypochromasia 1+; Lymphocytes 4 % (20-55); Ovalocytes Slight; Platelet Estimate Adequate; Segmented Neutrophils 87 % (50-85); Total Cells Counted 100
[2019-04-12] MEDS ORDERED: FUROSEMIDE 40 MG/4 ML VIAL IV ONE (09:45)
[2019-04-12] MEDS: PANTOPRAZOLE 40 MG TABLET PO SCH (09:52)
[2019-04-12] MEDS: DUTASTERIDE 0.5 MG CAPSULE PO SCH ×2 (09:53→23:46)
[2019-04-12] MEDS: LEVOFLOXACIN INJ 750 MG in PREMIX 1 EACH IV SCH (09:53)
[2019-04-12] MEDS: METOPROLOL SUCCINATE XL 25 MG TABLET PO SCH (09:53)
[2019-04-12] MEDS: TAMSULOSIN 0.4 MG CAPSULE PO SCH ×2 (09:53→23:46)
[2019-04-12] MEDS: DOCUSATE SODIUM 100 MG CAPSULE PO SCH ×2 (09:57→23:46)
[2019-04-12] MEDS: [UNRECOGNIZED DRUG - OTHER] IV SCH (09:57)
[2019-04-12] MEDS: MAGNESIUM SULF IV SCH (09:57)
[2019-04-12] MEDS: POTASSIUM CHLORIDE IV SCH (09:57)
[2019-04-12 11:31] LABS: Total Protein 5.7 G/DL (6.4-8.3)
[2019-04-12] MEDS ORDERED: LORazepam 2 MG/1 ML VIAL IV PRN (16:06)
[2019-04-12] MEDS: ZIPRASIDONE 20 MG/1 ML VIAL IM PRN (16:21)
[2019-04-12] MEDS: METOPROLOL TARTRATE 50 MG TABLET PO SCH (18:06)
[2019-04-12] MEDS: cefTRIAXone 1,000 MG in SYRINGE 1 EACH IV SCH (19:55)
[2019-04-13] MEDS: ENOXAPARIN 30 MG/0.3 ML SYRINGE SUBCUT SCH ×2 (03:10→21:42)
[2019-04-13 04:20] LABS: Basophils # 0.1 10*3/uL (0.0-0.2); Basophils % 0.3 % (0.0-0.8); Eosinophils # 0.1 10*3/uL (0.0-0.87); Eosinophils % 0.7 % (0.00-10.9); Hemoglobin 9.1 GM/DL (14.0-18.0); Immature Granulocytes % 1.7 %; Lymphocytes # 1.7 10*3/uL (1.4-4.0); Lymphocytes % 9.5 % (21.2-54.2); Mean Corpuscular HGB Conc 32.5 GM/DL (32-36); Mean Corpuscular Volume 78.2 FL (87-102); Mean Platelet Volume 9.3 FL (9.6-12.0); Monocytes % 7.1 % (1.7-12.7); Neutrophils % 80.7 % (38.7-73.9); Platelet Count 322 T/CUMM (130-400); Red Blood Count 3.58 MC/CUMM (3.8-5.5); Red Cell Distribution Width 16.1 % (9.3-17.3); White Blood Count 17.4 T/CUMM (4-12)
[2019-04-13 04:53] LABS: Albumin 1.6 G/DL (3.4-5.0); Bilirubin,Total 0.5 MG/DL (0.2-1.0); Calcium 8.2 MG/DL (8.5-10.1); Osmolality,Calculated 282.7 MOS/KG (273-304); Total Protein 5.7 G/DL (6.4-8.3)
[2019-04-13 05:00] LABS: Platelet Estimate Normal; Polychromasia Slight
[2019-04-13] MEDS: TAMSULOSIN 0.4 MG CAPSULE PO SCH ×2 (09:17→21:42)
[2019-04-13] MEDS: DOCUSATE SODIUM 100 MG CAPSULE PO SCH ×2 (09:17→21:42)
[2019-04-13] MEDS: PANTOPRAZOLE 40 MG TABLET PO SCH (09:17)
[2019-04-13] MEDS: METOPROLOL TARTRATE 50 MG TABLET PO SCH ×3 (09:17→21:42)
[2019-04-13] MEDS: DUTASTERIDE 0.5 MG CAPSULE PO SCH ×2 (09:17→21:42)
[2019-04-13] MEDS ORDERED: SODIUM CHLORIDE 0.9% 1,000 ML IV STA (16:53)
[2019-04-13] MEDS: DEXTROSE 5% NACL 0.45% 1,000 ML IV SCH (18:45)
[2019-04-13] MEDS: cefTRIAXone 1,000 MG in SYRINGE 1 EACH IV SCH (21:43)
[2019-04-14] MEDS: ZIPRASIDONE 20 MG/1 ML VIAL IM PRN (00:18)
[2019-04-14] MEDS: DEXTROSE 5% NACL 0.45% 1,000 ML IV SCH (03:34)
[2019-04-14] MEDS ORDERED: ALBUTEROL/IPRATROPIUM 3 ML NEB RESP TX ONE ×2 (05:30→05:47)
[2019-04-14 05:35] LABS: ABG Base Excess 1.7 MMOL/L (-2.5-2.5); ABG HCO3 25.9 MMOL/L (20-26); ABG Oxygen Saturation 97.9 % (95-100); ABG PH 7.492 (7.35-7.45); ABG PO2 92.8 MM HG (80-95); ABG TCO2 22.1 MMOL/L (23-27); Allen Test Positive
[2019-04-14] MEDS ORDERED: MIDAZOLAM 2 MG/2 ML VIAL ONE (05:45)
[2019-04-14] MEDS ORDERED: ETOMIDATE 20 MG/10 ML VIAL IV ONE ×3 (05:45→05:58)
[2019-04-14] MEDS ORDERED: FUROSEMIDE 40 MG/4 ML VIAL ONE (05:45)
[2019-04-14] MEDS ORDERED: VECURONIUM 10 MG VIAL IV ONE ×2 (05:45→05:50)
[2019-04-14] MEDS ORDERED: MIDAZOLAM 2 MG/2 ML VIAL IV ONE ×2 (05:50→06:00)
[2019-04-14] MEDS ORDERED: FUROSEMIDE 40 MG/4 ML VIAL IV ONE (05:54)
[2019-04-14 05:55] LABS: Basophils % 0.2 % (0.0-0.8); Eosinophils # 0.4 10*3/uL (0.0-0.87); Hematocrit 29.4 VOL% (42.0-52.0); Hemoglobin 9.4 GM/DL (14.0-18.0); Immature Granulocytes % 1.1 %; Immature Granulocytes Absolute 0.16 #; Lymphocytes # 1.9 10*3/uL (1.4-4.0); Lymphocytes % 13.5 % (21.2-54.2); Monocytes % 7.1 % (1.7-12.7); Neutrophils % 75.1 % (38.7-73.9); Platelet Count 345 T/CUMM (130-400); Red Blood Count 3.77 MC/CUMM (3.8-5.5); Red Cell Distribution Width 16.3 % (9.3-17.3); White Blood Count 14.2 T/CUMM (4-12)
[2019-04-14] MEDS ORDERED: PROPOFOL 1,000 MG/100 ML BOTTLE IV ONE (05:58)
[2019-04-14] MEDS: PROPOFOL 1,000 MG/100 ML BOTTLE IV SCH (06:00)
[2019-04-14 06:12] LABS: Calcium 7.8 MG/DL (8.5-10.1)
[2019-04-14 06:22] LABS: Eosinophils 3 % (0-10); Lymphocytes 12 % (20-55); Segmented Neutrophils 77 % (50-85); Total Cells Counted 100
[2019-04-14 06:23] LABS: Anisocytosis 1+; Hypochromasia 1+; Microcytosis 1+; Platelet Estimate Normal
[2019-04-14 07:56] LABS: Pt O2 Delivery Device Ventilator
[2019-04-14 07:58] LABS: ABG Base Excess 0.2 MMOL/L (-2.5-2.5); ABG HCO3 24.6 MMOL/L (20-26); ABG Oxygen Saturation 98.2 % (95-100); ABG PCO2 46.5 MM HG (35-48); ABG PH 7.358 (7.35-7.45); ABG TCO2 23.4 MMOL/L (23-27)
[2019-04-14] MEDS: DOCUSATE SODIUM 100 MG CAPSULE PO SCH ×2 (08:13→21:07)
[2019-04-14 08:19] LABS: Troponin I < 0.015 NG/ML (0.00-0.045)
[2019-04-14] MEDS: TAMSULOSIN 0.4 MG CAPSULE PO SCH (08:58)
[2019-04-14] MEDS: DUTASTERIDE 0.5 MG CAPSULE PO SCH (08:59)
[2019-04-14] MEDS: PANTOPRAZOLE 40 MG TABLET PO SCH (09:02)
[2019-04-14] MEDS: FUROSEMIDE 40 MG/4 ML VIAL IV SCH (10:34)
[2019-04-14] MEDS: METOPROLOL TARTRATE 50 MG TABLET PO SCH ×2 (10:34→21:07)
[2019-04-14 10:45] LABS: Troponin I < 0.015 NG/ML (0.00-0.045)
[2019-04-14] MEDS: DEXMEDETOMIDINE 200 MCG in SODIUM CHLORIDE 0.9% 48 ML IV PRN ×3 (11:15→23:54)
[2019-04-14] MEDS ORDERED: POTASSIUM CHLORIDE 20 MEQ TABLET PO ONE (11:44)
[2019-04-14] MEDS ORDERED: MAGNESIUM SULF RIDER 2 GM in PREMIX 1 EACH IV PRN (11:45)
[2019-04-14] MEDS: PHENYLEPHRINE DRIP 40 MG/250 ML PREMIX IV PRN ×2 (11:50→19:45)
[2019-04-14] MEDS: ASCORBIC ACID 500 MG TABLET PO SCH ×2 (12:17→20:22)
[2019-04-14] MEDS: LANSOPRAZOLE ODT 30 MG TABLET PO SCH (12:18)
[2019-04-14 13:04] LABS: Calcium 7.9 MG/DL (8.5-10.1); Osmolality,Calculated 291.1 MOS/KG (273-304)
[2019-04-14] MEDS ORDERED: POTASSIUM CHLORIDE 20 MEQ/15 ML UDCUP PER TUBE ONE (13:55)
[2019-04-14 14:23] LABS: Troponin I < 0.015 NG/ML (0.00-0.045)
[2019-04-14 18:26] LABS: Troponin I < 0.015 NG/ML (0.00-0.045)
[2019-04-14] MEDS: cefTRIAXone 1,000 MG in SYRINGE 1 EACH IV SCH (20:20)
[2019-04-14] MEDS: ENOXAPARIN 40 MG/0.4 ML SYRINGE SUBCUT SCH (20:21)
[2019-04-15] MEDS: PHENYLEPHRINE DRIP 40 MG/250 ML PREMIX IV PRN ×2 (03:10→18:29)
[2019-04-15 03:34] LABS: Allen Test Positive; Pt O2 Delivery Device Ventilator
[2019-04-15 03:35] LABS: ABG Base Excess 2.9 MMOL/L (-2.5-2.5); ABG Oxygen Saturation 99.6 % (95-100); ABG PCO2 27.8 MM HG (35-48); ABG PH 7.554 (7.35-7.45); ABG TCO2 22.3 MMOL/L (23-27)
[2019-04-15 06:04] LABS: Basophils # 0.1 10*3/uL (0.0-0.2); Basophils % 0.3 % (0.0-0.8); Eosinophils # 0.5 10*3/uL (0.0-0.87); Eosinophils % 3.6 % (0.00-10.9); Hematocrit 31.1 VOL% (42.0-52.0); Hemoglobin 9.8 GM/DL (14.0-18.0); Immature Granulocytes % 1.6 %; Immature Granulocytes Absolute 0.23 #; Lymphocytes # 2.4 10*3/uL (1.4-4.0); Lymphocytes % 16.4 % (21.2-54.2); Mean Corpuscular HGB Conc 31.5 GM/DL (32-36); Mean Corpuscular Volume 78.7 FL (87-102); Monocytes % 6.8 % (1.7-12.7); Neutrophils % 71.3 % (38.7-73.9); Platelet Count 422 T/CUMM (130-400); Red Blood Count 3.95 MC/CUMM (3.8-5.5); Red Cell Distribution Width 16.6 % (9.3-17.3); White Blood Count 14.6 T/CUMM (4-12)
[2019-04-15 06:28] LABS: Eosinophils 1 % (0-10); Hypochromasia 1+; Lymphocytes 8 % (20-55); Platelet Estimate Normal; Polychromasia Few; Segmented Neutrophils 89 % (50-85); Total Cells Counted 100
[2019-04-15 06:38] LABS: Calcium 7.7 MG/DL (8.5-10.1)
[2019-04-15] MEDS ORDERED: POTASSIUM CHLORIDE RIDER 200 ML IV ONE (06:47)
[2019-04-15] MEDS: POTASSIUM CHLORIDE RIDER 10 MEQ in PREMIX 1 EACH IV PRN ×2 (06:55→07:54)
[2019-04-15] MEDS: PROPOFOL 1,000 MG/100 ML BOTTLE IV SCH (07:53)
[2019-04-15] MEDS ORDERED: GLUCAGON 1 MG VIAL IM PRN (08:33)
[2019-04-15] MEDS ORDERED: DEXTROSE 50% 25 GM/50 ML VIAL IV PRN (08:33)
[2019-04-15] MEDS: METOPROLOL TARTRATE 50 MG TABLET PO SCH ×2 (08:40→21:38)
[2019-04-15] MEDS: FUROSEMIDE 40 MG/4 ML VIAL IV SCH (08:41)
[2019-04-15] MEDS: ASCORBIC ACID 500 MG TABLET PO SCH ×2 (08:42→21:38)
[2019-04-15] MEDS: LANSOPRAZOLE ODT 30 MG TABLET PO SCH (08:42)
[2019-04-15] MEDS: POTASSIUM CHLORIDE 20 MEQ/15 ML UDCUP PER TUBE SCH (08:42)
[2019-04-15] MEDS: DOCUSATE SODIUM 100 MG CAPSULE PO SCH ×2 (08:43→21:38)
[2019-04-15] MEDS ORDERED: POTASSIUM CHLORIDE 20 MEQ TABLET PO SCH (09:00)
[2019-04-15 09:53] LABS: Albumin (SPE) 2.2 G/DL (3.2-5.3); Albumin (SPE) Rel % 39.2 %; Alpha 1 (SPE) 0.4 G/DL (0.1-0.4); Alpha 1 (SPE) Rel % 6.5 %; Alpha 2 (SPE) Rel % 17.6 %; Beta (SPE) 0.7 G/DL (0.5-1.1); Beta (SPE) Rel % 12.4 %; Gamma (SPE) 1.4 G/DL (0.7-1.7); Gamma (SPE) Rel % 24.3 %
[2019-04-15 09:55] LABS: Total Protein (Chem) 5.7 G/DL (6.4-8.3)
[2019-04-15] MEDS: INSULIN REGULAR 100 UNIT/ML SUBCUT SCH ×2 (12:01→18:00)
[2019-04-15] MEDS: DEXMEDETOMIDINE 200 MCG in SODIUM CHLORIDE 0.9% 48 ML IV PRN (18:30)
[2019-04-15] MEDS: ENOXAPARIN 40 MG/0.4 ML SYRINGE SUBCUT SCH (21:35)
[2019-04-15] MEDS: cefTRIAXone 1,000 MG in SYRINGE 1 EACH IV SCH (21:39)
[2019-04-16] MEDS: INSULIN REGULAR 100 UNIT/ML SUBCUT SCH ×4 (00:15→17:20)
[2019-04-16] MEDS: DEXMEDETOMIDINE 200 MCG in SODIUM CHLORIDE 0.9% 48 ML IV PRN ×2 (03:04→15:41)
[2019-04-16 04:20] LABS: ABG Base Excess 3.1 MMOL/L (-2.5-2.5); ABG HCO3 27.2 MMOL/L (20-26); ABG Oxygen Saturation 99.2 % (95-100); ABG PCO2 30.6 MM HG (35-48); ABG PH 7.528 (7.35-7.45); ABG TCO2 23.1 MMOL/L (23-27)
[2019-04-16 05:47] LABS: Basophils # 0.1 10*3/uL (0.0-0.2); Basophils % 0.6 % (0.0-0.8); Eosinophils # 0.5 10*3/uL (0.0-0.87); Eosinophils % 2.9 % (0.00-10.9); Hematocrit 30.2 VOL% (42.0-52.0); Hemoglobin 9.6 GM/DL (14.0-18.0); Immature Granulocytes % 1.7 %; Immature Granulocytes Absolute 0.27 #; Lymphocytes # 2.1 10*3/uL (1.4-4.0); Lymphocytes % 12.7 % (21.2-54.2); Mean Corpuscular HGB Conc 31.8 GM/DL (32-36); Mean Corpuscular Volume 78.6 FL (87-102); Mean Platelet Volume 8.8 FL (9.6-12.0); Monocytes % 6.2 % (1.7-12.7); Neutrophils % 75.9 % (38.7-73.9); Platelet Count 391 T/CUMM (130-400); Red Blood Count 3.84 MC/CUMM (3.8-5.5); Red Cell Distribution Width 16.7 % (9.3-17.3); White Blood Count 16.3 T/CUMM (4-12)
[2019-04-16 06:05] LABS: Albumin 1.5 G/DL (3.4-5.0); Bilirubin,Total 0.6 MG/DL (0.2-1.0); Osmolality,Calculated 282.4 MOS/KG (273-304)
[2019-04-16 06:10] LABS: Prealbumin 5.7 MG/DL (20-40)
[2019-04-16 06:11] LABS: Hypochromasia 1+; Ovalocytes Slight; Platelet Estimate Adequate
[2019-04-16] MEDS: POTASSIUM CHLORIDE RIDER 10 MEQ in PREMIX 1 EACH IV PRN ×7 (06:21→15:49)
[2019-04-16] MEDS: PROPOFOL 1,000 MG/100 ML BOTTLE IV SCH (07:22)
[2019-04-16] MEDS ORDERED: cefOXitin 1,000 MG in SODIUM CHLORIDE 0.9% 100 ML IV ONE (07:38)
[2019-04-16] MEDS ORDERED: cefOXitin 1,000 MG in SYRINGE 1 EACH IV ONE (08:00)
[2019-04-16] MEDS: METOPROLOL TARTRATE 50 MG TABLET PO SCH ×2 (08:05→21:06)
[2019-04-16] MEDS: DOCUSATE SODIUM 100 MG CAPSULE PO SCH ×2 (08:05→21:05)
[2019-04-16] MEDS: LANSOPRAZOLE ODT 30 MG TABLET PO SCH ×2 (08:50→09:02)
[2019-04-16] MEDS: FUROSEMIDE 40 MG/4 ML VIAL IV SCH (08:50)
[2019-04-16] MEDS: ASCORBIC ACID 500 MG TABLET PO SCH ×3 (08:50→21:05)
[2019-04-16] MEDS: POTASSIUM CHLORIDE 20 MEQ/15 ML UDCUP PER TUBE SCH ×2 (08:54→09:02)
[2019-04-16] MEDS: PHENYLEPHRINE DRIP 40 MG/250 ML PREMIX IV PRN (10:37)
[2019-04-16] MEDS ORDERED: LIDOCAINE 1% 20 ML VIAL ONE (12:22)
[2019-04-16] MEDS ORDERED: BUPIVACAINE 0.25% /EPI 10 ML VIAL ONE (12:22)
[2019-04-16] MEDS ORDERED: ePHEDrine 50 MG/ML AMP ONE (13:37)
[2019-04-16] MEDS ORDERED: fentaNYL 100 MCG/2 ML VIAL ONE (13:37)
[2019-04-16] MEDS ORDERED: SEVOFLURANE 1 UNIT/15 MINUTE INH ONE (13:37)
[2019-04-16] MEDS ORDERED: ONDANSETRON 4 MG/2 ML VIAL ONE (13:37)
[2019-04-16] MEDS ORDERED: MIDAZOLAM 2 MG/2 ML VIAL ONE (13:37)
[2019-04-16] MEDS ORDERED: DEXAMETHASONE 4 MG/1 ML VIAL ONE (13:37)
[2019-04-16] MEDS ORDERED: KETOROLAC 30 MG/1 ML VIAL ONE (13:38)
[2019-04-16] MEDS ORDERED: PHENYLEPHRINE 1 MG/10 ML SYRINGE IV ONE (13:38)
[2019-04-16] MEDS ORDERED: ETOMIDATE 40 MG/20 ML VIAL IV ONE (13:38)
[2019-04-16] MEDS ORDERED: ROCURONIUM 100 MG/10 ML VIAL IV ONE (13:38)
[2019-04-16] MEDS: SODIUM CHLORIDE 0.9% 1,000 ML IV SCH (15:43)
[2019-04-16] MEDS: cefTRIAXone 1,000 MG in SYRINGE 1 EACH IV SCH (21:05)
[2019-04-16] MEDS: ENOXAPARIN 40 MG/0.4 ML SYRINGE SUBCUT SCH (21:06)
[2019-04-17] MEDS: INSULIN REGULAR 100 UNIT/ML SUBCUT SCH ×4 (01:55→19:32)
[2019-04-17] MEDS: MORPHINE 4 MG/1 ML VIAL IV PRN (02:30)
[2019-04-17] MEDS: DEXMEDETOMIDINE 200 MCG in SODIUM CHLORIDE 0.9% 48 ML IV PRN (02:40)
[2019-04-17 03:39] LABS: ABG Base Excess 2.3 MMOL/L (-2.5-2.5); ABG HCO3 26.5 MMOL/L (20-26); ABG Oxygen Saturation 99.3 % (95-100); ABG PCO2 29.8 MM HG (35-48); ABG PH 7.526 (7.35-7.45); ABG TCO2 22.4 MMOL/L (23-27); Allen Test Positive; Pt O2 Delivery Device Ventilator
[2019-04-17 04:35] LABS: Basophils % 0.2 % (0.0-0.8); Hematocrit 29.2 VOL% (42.0-52.0); Hemoglobin 9.2 GM/DL (14.0-18.0); Immature Granulocytes % 1.9 %; Immature Granulocytes Absolute 0.24 #; Lymphocytes # 1.4 10*3/uL (1.4-4.0); Lymphocytes % 11.2 % (21.2-54.2); Mean Corpuscular HGB Conc 31.5 GM/DL (32-36); Mean Corpuscular Volume 78.9 FL (87-102); Neutrophils % 82.7 % (38.7-73.9); Platelet Count 375 T/CUMM (130-400); Red Cell Distribution Width 16.6 % (9.3-17.3); White Blood Count 12.6 T/CUMM (4-12)
[2019-04-17 05:00] LABS: Alanine Aminotransferase 32 U/L (16-61); Albumin 1.4 G/DL (3.4-5.0); Alkaline Phosphatase 82 U/L (45-117); Aspartate Amino Transferase 35 U/L (0-37); Bilirubin,Total < 0.39 MG/DL (0.2-1.0); Blood Urea Nitrogen 26 MG/DL (7-18); Calcium 7.5 MG/DL (8.5-10.1); Glucose 146 MG/DL (74-106); Osmolality,Calculated 284.5 MOS/KG (273-304); Total Protein 6.1 G/DL (6.4-8.3)
[2019-04-17] MEDS: LORazepam 2 MG/1 ML VIAL IV PRN ×2 (06:00→12:13)
[2019-04-17] MEDS: SODIUM CHLORIDE 0.9% 1,000 ML IV SCH ×2 (06:09→06:10)
[2019-04-17] MEDS: POTASSIUM CHLORIDE RIDER 10 MEQ in PREMIX 1 EACH IV PRN (06:39)
[2019-04-17] MEDS: PROPOFOL 1,000 MG/100 ML BOTTLE IV SCH (08:22)
[2019-04-17] MEDS: LANSOPRAZOLE ODT 30 MG TABLET PO SCH (09:08)
[2019-04-17] MEDS: DOCUSATE SODIUM 100 MG CAPSULE PO SCH ×2 (09:08→20:41)
[2019-04-17] MEDS: POTASSIUM CHLORIDE 20 MEQ/15 ML UDCUP PER TUBE SCH (09:09)
[2019-04-17] MEDS: METOPROLOL TARTRATE 50 MG TABLET PO SCH ×2 (09:09→20:41)
[2019-04-17] MEDS: ASCORBIC ACID 500 MG TABLET PO SCH ×2 (09:09→20:36)
[2019-04-17] MEDS: FUROSEMIDE 40 MG/4 ML VIAL IV SCH (09:09)
[2019-04-17] MEDS: ZIPRASIDONE 20 MG/1 ML VIAL IM PRN ×2 (13:20→21:37)
[2019-04-17 14:23] LABS: ABG Base Excess 2.9 MMOL/L (-2.5-2.5); ABG Oxygen Saturation 95.9 % (95-100); ABG PCO2 30.6 MM HG (35-48); ABG PH 7.523 (7.35-7.45); ABG PO2 80.7 MM HG (80-95); ABG TCO2 22.6 MMOL/L (23-27); Allen Test Positive
[2019-04-17] MEDS: cefTRIAXone 1,000 MG in SYRINGE 1 EACH IV SCH (20:28)
[2019-04-17] MEDS: ENOXAPARIN 40 MG/0.4 ML SYRINGE SUBCUT SCH (20:31)
[2019-04-18] MEDS: INSULIN REGULAR 100 UNIT/ML SUBCUT SCH ×3 (00:15→17:46)
[2019-04-18 05:15] LABS: Basophils % 0.3 % (0.0-0.8); Eosinophils % 0.4 % (0.00-10.9); Hematocrit 28.8 VOL% (42.0-52.0); Hemoglobin 9.1 GM/DL (14.0-18.0); Immature Granulocytes % 1.4 %; Immature Granulocytes Absolute 0.14 #; Lymphocytes # 1.4 10*3/uL (1.4-4.0); Lymphocytes % 14.4 % (21.2-54.2); Mean Corpuscular HGB Conc 31.6 GM/DL (32-36); Mean Platelet Volume 9.1 FL (9.6-12.0); Monocytes % 7.5 % (1.7-12.7); Platelet Count 382 T/CUMM (130-400); White Blood Count 9.9 T/CUMM (4-12)
[2019-04-18 05:46] LABS: Albumin 1.5 G/DL (3.4-5.0); Bilirubin,Total 0.4 MG/DL (0.2-1.0); Calcium 7.5 MG/DL (8.5-10.1); Osmolality,Calculated 283.1 MOS/KG (273-304); Total Protein 5.8 G/DL (6.4-8.3)
[2019-04-18] MEDS: SODIUM CHLORIDE 0.9% 1,000 ML IV SCH ×3 (07:53→18:01)
[2019-04-18] MEDS: METOPROLOL TARTRATE 50 MG TABLET PO SCH ×2 (10:06→21:08)
[2019-04-18] MEDS: DOCUSATE SODIUM 100 MG CAPSULE PO SCH ×2 (10:06→21:07)
[2019-04-18] MEDS: DUTASTERIDE 0.5 MG CAPSULE PO SCH ×3 (10:06→21:07)
[2019-04-18] MEDS: TAMSULOSIN 0.4 MG CAPSULE PO SCH ×3 (10:07→21:07)
[2019-04-18] MEDS: QUEtiapine 25 MG TABLET PO SCH ×2 (10:08→21:08)
[2019-04-18] MEDS: FUROSEMIDE 40 MG/4 ML VIAL IV SCH (10:08)
[2019-04-18] MEDS: LANSOPRAZOLE ODT 30 MG TABLET PO SCH (10:08)
[2019-04-18] MEDS: ASCORBIC ACID 500 MG TABLET PO SCH ×3 (10:13→21:08)
[2019-04-18] MEDS: POTASSIUM CHLORIDE RIDER 10 MEQ in PREMIX 1 EACH IV PRN ×3 (10:16→19:35)
[2019-04-18] MEDS: cefTRIAXone 1,000 MG in SYRINGE 1 EACH IV SCH (19:59)
[2019-04-18] MEDS: ENOXAPARIN 40 MG/0.4 ML SYRINGE SUBCUT SCH (21:08)
[2019-04-19 06:21] LABS: Basophils # 0.1 10*3/uL (0.0-0.2); Basophils % 0.5 % (0.0-0.8); Eosinophils # 0.2 10*3/uL (0.0-0.87); Eosinophils % 2.5 % (0.00-10.9); Hematocrit 30.2 VOL% (42.0-52.0); Hemoglobin 9.5 GM/DL (14.0-18.0); Immature Granulocytes % 1.1 %; Immature Granulocytes Absolute 0.11 #; Lymphocytes # 1.8 10*3/uL (1.4-4.0); Lymphocytes % 18.4 % (21.2-54.2); Mean Corpuscular HGB Conc 31.5 GM/DL (32-36); Mean Corpuscular Volume 79.9 FL (87-102); Monocytes % 8.5 % (1.7-12.7); Platelet Count 387 T/CUMM (130-400); Red Blood Count 3.78 MC/CUMM (3.8-5.5); Red Cell Distribution Width 17.1 % (9.3-17.3); White Blood Count 9.7 T/CUMM (4-12)
[2019-04-19 06:57] LABS: Albumin 1.5 G/DL (3.4-5.0); Bilirubin,Total 0.4 MG/DL (0.2-1.0); Calcium 7.9 MG/DL (8.5-10.1); Osmolality,Calculated 281.3 MOS/KG (273-304); Total Protein 5.8 G/DL (6.4-8.3)
[2019-04-19] MEDS: SODIUM CHLORIDE 0.9% 1,000 ML IV SCH ×2 (07:00→20:48)
[2019-04-19] MEDS: DOCUSATE SODIUM 100 MG CAPSULE PO SCH ×2 (09:04→20:39)
[2019-04-19] MEDS: ASCORBIC ACID 500 MG TABLET PO SCH ×2 (09:04→20:38)
[2019-04-19] MEDS: LANSOPRAZOLE ODT 30 MG TABLET PO SCH (09:04)
[2019-04-19] MEDS: TAMSULOSIN 0.4 MG CAPSULE PO SCH ×2 (09:04→20:38)
[2019-04-19] MEDS: METOPROLOL TARTRATE 50 MG TABLET PO SCH ×2 (09:05→20:39)
[2019-04-19] MEDS: DUTASTERIDE 0.5 MG CAPSULE PO SCH ×2 (09:05→20:39)
[2019-04-19] MEDS: QUEtiapine 25 MG TABLET PO SCH ×2 (10:28→20:39)
[2019-04-19] MEDS ORDERED: TUBERCULIN SKIN TEST 0.1 ML SYRINGE INTRADERM ONE (14:20)
[2019-04-19] MEDS: ENOXAPARIN 40 MG/0.4 ML SYRINGE SUBCUT SCH (20:47)
[2019-04-19] MEDS: cefTRIAXone 1,000 MG in SYRINGE 1 EACH IV SCH (20:48)
[2019-04-19] MEDS: MORPHINE 4 MG/1 ML VIAL IV PRN (20:53)
[2019-04-19] MEDS: INSULIN REGULAR 100 UNIT/ML SUBCUT SCH (22:28)
[2019-04-20] MEDS: ZIPRASIDONE 20 MG/1 ML VIAL IM PRN (02:00)
[2019-04-20] MEDS: MORPHINE 4 MG/1 ML VIAL IV PRN ×2 (03:17→06:30)
[2019-04-20 05:37] LABS: Basophils % 0.5 % (0.0-0.8); Eosinophils # 0.3 10*3/uL (0.0-0.87); Eosinophils % 3.9 % (0.00-10.9); Hemoglobin 9.2 GM/DL (14.0-18.0); Immature Granulocytes Absolute 0.08 #; Lymphocytes # 1.6 10*3/uL (1.4-4.0); Lymphocytes % 20.5 % (21.2-54.2); Mean Corpuscular HGB Conc 31.7 GM/DL (32-36); Mean Corpuscular Volume 80.1 FL (87-102); Mean Platelet Volume 9.1 FL (9.6-12.0); Monocytes % 7.3 % (1.7-12.7); Neutrophils % 66.8 % (38.7-73.9); Platelet Count 363 T/CUMM (130-400); Red Blood Count 3.62 MC/CUMM (3.8-5.5); Red Cell Distribution Width 16.9 % (9.3-17.3)
[2019-04-20 06:01] LABS: Albumin 1.5 G/DL (3.4-5.0); Bilirubin,Total 0.5 MG/DL (0.2-1.0); Calcium 7.7 MG/DL (8.5-10.1); Total Protein 5.9 G/DL (6.4-8.3)
[2019-04-20] MEDS ORDERED: POTASSIUM CHLORIDE 20 MEQ TABLET PO PRN (08:50)
[2019-04-20] MEDS: POTASSIUM CHLORIDE RIDER 10 MEQ in PREMIX 1 EACH IV PRN ×2 (08:58→13:26)
[2019-04-20] MEDS: DOCUSATE SODIUM 100 MG CAPSULE PO SCH ×2 (08:59→21:49)
[2019-04-20] MEDS: QUEtiapine 25 MG TABLET PO SCH ×2 (08:59→21:49)
[2019-04-20] MEDS: METOPROLOL TARTRATE 50 MG TABLET PO SCH ×2 (08:59→21:49)
[2019-04-20] MEDS: ASCORBIC ACID 500 MG TABLET PO SCH ×2 (08:59→21:49)
[2019-04-20] MEDS: DUTASTERIDE 0.5 MG CAPSULE PO SCH ×2 (08:59→21:49)
[2019-04-20] MEDS: TAMSULOSIN 0.4 MG CAPSULE PO SCH ×2 (08:59→21:49)
[2019-04-20] MEDS: LANSOPRAZOLE ODT 30 MG TABLET PO SCH (08:59)
[2019-04-20] MEDS: SODIUM CHLORIDE 0.9% 1,000 ML IV SCH (14:41)
[2019-04-20] MEDS: ENOXAPARIN 40 MG/0.4 ML SYRINGE SUBCUT SCH (21:48)
[2019-04-21] MEDS: SODIUM CHLORIDE 0.9% 1,000 ML IV SCH ×2 (04:16→14:38)
[2019-04-21 05:27] LABS: Basophils % 0.6 % (0.0-0.8); Eosinophils # 0.4 10*3/uL (0.0-0.87); Eosinophils % 6.1 % (0.00-10.9); Hematocrit 29.3 VOL% (42.0-52.0); Hemoglobin 8.9 GM/DL (14.0-18.0); Immature Granulocytes % 1.5 %; Lymphocytes % 29.8 % (21.2-54.2); Mean Corpuscular HGB Conc 30.4 GM/DL (32-36); Mean Corpuscular Volume 81.6 FL (87-102); Monocytes % 9.9 % (1.7-12.7); Neutrophils % 52.1 % (38.7-73.9); Platelet Count 364 T/CUMM (130-400); Red Blood Count 3.59 MC/CUMM (3.8-5.5); Red Cell Distribution Width 16.8 % (9.3-17.3); White Blood Count 6.6 T/CUMM (4-12)
[2019-04-21 06:00] LABS: Albumin 1.6 G/DL (3.4-5.0); Bilirubin,Total 0.6 MG/DL (0.2-1.0); Calcium 7.6 MG/DL (8.5-10.1); Osmolality,Calculated 286.7 MOS/KG (273-304); Total Protein 5.8 G/DL (6.4-8.3)
[2019-04-21 06:22] LABS: Calcium 7.6 MG/DL (8.5-10.1); Osmolality,Calculated 284.8 MOS/KG (273-304)
[2019-04-21] MEDS: ENOXAPARIN 40 MG/0.4 ML SYRINGE SUBCUT SCH ×2 (08:18→21:15)
[2019-04-21] MEDS: ASCORBIC ACID 500 MG TABLET PO SCH ×2 (08:18→21:16)
[2019-04-21] MEDS: DOCUSATE SODIUM 100 MG CAPSULE PO SCH ×2 (08:18→21:16)
[2019-04-21] MEDS: LANSOPRAZOLE ODT 30 MG TABLET PO SCH (08:18)
[2019-04-21] MEDS: DUTASTERIDE 0.5 MG CAPSULE PO SCH ×2 (08:18→21:15)
[2019-04-21] MEDS: QUEtiapine 25 MG TABLET PO SCH ×2 (08:19→21:16)
[2019-04-21] MEDS: METOPROLOL TARTRATE 50 MG TABLET PO SCH ×2 (08:19→21:16)
[2019-04-21] MEDS: TAMSULOSIN 0.4 MG CAPSULE PO SCH ×2 (08:19→21:16)
[2019-04-21] MEDS: POTASSIUM CHLORIDE RIDER 10 MEQ in PREMIX 1 EACH IV PRN ×4 (08:20→14:39)
[2019-04-22] MEDS: ENOXAPARIN 40 MG/0.4 ML SYRINGE SUBCUT SCH ×2 (08:34→23:11)
[2019-04-22] MEDS: DUTASTERIDE 0.5 MG CAPSULE PO SCH ×2 (08:34→23:10)
[2019-04-22] MEDS: METOPROLOL TARTRATE 50 MG TABLET PO SCH ×2 (08:35→23:10)
[2019-04-22] MEDS: LANSOPRAZOLE ODT 30 MG TABLET PO SCH (08:35)
[2019-04-22] MEDS: DOCUSATE SODIUM 100 MG CAPSULE PO SCH ×2 (08:35→23:11)
[2019-04-22] MEDS: TAMSULOSIN 0.4 MG CAPSULE PO SCH ×2 (08:35→23:11)
[2019-04-22] MEDS: ASCORBIC ACID 500 MG TABLET PO SCH ×2 (08:35→23:11)
[2019-04-22] MEDS: QUEtiapine 25 MG TABLET PO SCH ×2 (08:35→23:11)
[2019-04-22] MEDS: SODIUM CHLORIDE 0.9% 1,000 ML IV SCH (13:24)
[2019-04-23 05:05] LABS: Basophils # 0.1 10*3/uL (0.0-0.2); Basophils % 0.8 % (0.0-0.8); Eosinophils # 0.4 10*3/uL (0.0-0.87); Eosinophils % 4.6 % (0.00-10.9); Hematocrit 29.6 VOL% (42.0-52.0); Immature Granulocytes Absolute 0.16 #; Lymphocytes # 2.3 10*3/uL (1.4-4.0); Lymphocytes % 29.6 % (21.2-54.2); Mean Corpuscular HGB Conc 30.4 GM/DL (32-36); Mean Corpuscular Volume 81.3 FL (87-102); Mean Platelet Volume 9.1 FL (9.6-12.0); Monocytes % 9.2 % (1.7-12.7); Neutrophils % 53.8 % (38.7-73.9); Platelet Count 447 T/CUMM (130-400); Red Blood Count 3.64 MC/CUMM (3.8-5.5); Red Cell Distribution Width 17.2 % (9.3-17.3); White Blood Count 7.9 T/CUMM (4-12)
[2019-04-23 05:13] LABS: Calcium 8.1 MG/DL (8.5-10.1); Osmolality,Calculated 283.8 MOS/KG (273-304)
[2019-04-23] MEDS: DOCUSATE SODIUM 100 MG CAPSULE PO SCH ×2 (08:12→20:15)
[2019-04-23] MEDS: ASCORBIC ACID 500 MG TABLET PO SCH ×2 (08:12→20:15)
[2019-04-23] MEDS: ENOXAPARIN 40 MG/0.4 ML SYRINGE SUBCUT SCH ×2 (08:12→20:15)
[2019-04-23] MEDS: QUEtiapine 25 MG TABLET PO SCH ×2 (08:12→20:15)
[2019-04-23] MEDS: DUTASTERIDE 0.5 MG CAPSULE PO SCH ×2 (08:12→20:14)
[2019-04-23] MEDS: METOPROLOL TARTRATE 50 MG TABLET PO SCH ×2 (08:12→20:14)
[2019-04-23] MEDS: LANSOPRAZOLE ODT 30 MG TABLET PO SCH (08:12)
[2019-04-23] MEDS: TAMSULOSIN 0.4 MG CAPSULE PO SCH ×2 (08:13→20:15)
[2019-04-23] MEDS: CAPECITABINE 500 MG PO SCH (20:06)
[2019-04-24] MEDS: ZIPRASIDONE 20 MG/1 ML VIAL IM PRN (00:33)
[2019-04-24 05:02] LABS: Basophils # 0.1 10*3/uL (0.0-0.2); Basophils % 0.8 % (0.0-0.8); Eosinophils # 0.2 10*3/uL (0.0-0.87); Eosinophils % 1.7 % (0.00-10.9); Hematocrit 29.9 VOL% (42.0-52.0); Hemoglobin 9.3 GM/DL (14.0-18.0); Immature Granulocytes Absolute 0.09 #; Lymphocytes # 2.1 10*3/uL (1.4-4.0); Lymphocytes % 22.3 % (21.2-54.2); Mean Corpuscular HGB Conc 31.1 GM/DL (32-36); Mean Corpuscular Volume 80.8 FL (87-102); Mean Platelet Volume 9.3 FL (9.6-12.0); Monocytes % 7.8 % (1.7-12.7); Neutrophils % 66.4 % (38.7-73.9); Platelet Count 478 T/CUMM (130-400); Red Cell Distribution Width 17.4 % (9.3-17.3); White Blood Count 9.2 T/CUMM (4-12)
[2019-04-24 05:39] LABS: Albumin 1.7 G/DL (3.4-5.0); Bilirubin,Total 0.8 MG/DL (0.2-1.0); Calcium 7.9 MG/DL (8.5-10.1); Total Protein 6.2 G/DL (6.4-8.3)
[2019-04-24] MEDS: CAPECITABINE 500 MG PO SCH (08:08)
[2019-04-24] MEDS: DOCUSATE SODIUM 100 MG CAPSULE PO SCH (08:50)
[2019-04-24] MEDS: ASCORBIC ACID 500 MG TABLET PO SCH (08:50)
[2019-04-24] MEDS: TAMSULOSIN 0.4 MG CAPSULE PO SCH (08:50)
[2019-04-24] MEDS: LANSOPRAZOLE ODT 30 MG TABLET PO SCH (08:50)
[2019-04-24] MEDS: DUTASTERIDE 0.5 MG CAPSULE PO SCH (08:50)
[2019-04-24] MEDS: METOPROLOL TARTRATE 50 MG TABLET PO SCH (08:59)
[2019-04-24] MEDS ORDERED: QUEtiapine 25 MG TABLET PO SCH ×2 (09:00→21:00)
[2019-04-24] MEDS ORDERED: ENOXAPARIN 40 MG/0.4 ML SYRINGE SUBCUT SCH (09:00)
[2019-04-24] MEDS ORDERED: POTASSIUM CHLORIDE 10 MEQ TABLET PO SCH (09:00)
[2019-04-24 10:10] VITALS: BP 92/52
== END 2019-04-24 14:38 | disposition swing bed (61) | DRG 981 ==
LOC: N.ED 21:02 → N.EDINP 04-09 00:06 → N.CC 04-09 00:23 → N.TELEN 04-11 16:31 → N.4E 04-11 22:18 → N.TELEN 04-12 13:56 → N.4E 04-13 15:00 → N.ICU 04-14 05:46 → N.5E 04-18 21:46
PROVIDERS: ADMIT Family Medicine; ATTEND Family Medicine

== ENCOUNTER 2020-03-05 21:24 | Inpatient (IN) ==
[2020-03-05 22:18] LABS: Alanine Aminotransferase 18 U/L (16-61); Albumin 2.4 G/DL (3.4-5.0); Alkaline Phosphatase 69 U/L (45-117); Aspartate Amino Transferase 23 U/L (0-37); Basophils % 0.1 % (0.0-0.8); Blood Urea Nitrogen 20 MG/DL (7-18); Estimated Glom Filtration Rate 53 ML/MIN; Ferritin 114.7 ng/ml (26-388); Glucose 124 MG/DL (74-106); Hematocrit 35.4 VOL% (42.0-52.0); Hemoglobin 11.8 GM/DL (14.0-18.0); Immature Granulocytes % 0.5 %; Immature Granulocytes Absolute 0.07 #; Lymphocytes # 0.6 10*3/uL (1.4-4.0); Lymphocytes % 4.4 % (21.2-54.2); Mean Corpuscular HGB Conc 33.3 GM/DL (32-36); Mean Corpuscular Volume 85.7 FL (87-102); Mean Platelet Volume 9.4 FL (9.6-12.0); Monocytes % 5.2 % (1.7-12.7); Neutrophils % 89.8 % (38.7-73.9); Osmolality,Calculated 258.2 MOS/KG (273-304); Platelet Count 200 T/CUMM (130-400); Red Blood Count 4.13 MC/CUMM (3.8-5.5); Red Cell Distribution Width 14.3 % (9.3-17.3); Total Protein 7.4 G/DL (6.4-8.3); Troponin I < 0.015 NG/ML (0.00-0.045); White Blood Count 14.3 T/CUMM (4-12)
[2020-03-05 22:38] LABS: PT Patient Result 10.9 SECS (9.8-11.9); Partial Thromboplastin Time 32.4 SECS (23.9-33.8)
[2020-03-05 23:20] LABS: Bacteria,Urine Occasional /HPF (Few); Bilirubin,Urine Negative (Negative); Blood, Urine Negative (Negative); Glucose,Urine (UA) Negative (Negative); Ketones,Urine Negative (Negative); Mucus,Urine Occasional /LPF (Occasional); Nitrite,Urine Negative (Negative); Protein,Urine 30 MG/DL; RBC,Urine 3 /HPF (0-4); Urine Appearance CLOUDY (Clear); Urine Color Yellow (Yellow); Urine Specific Gravity 1.019 (1.001-1.035); Urine Urobilinogen < 2.0 EU/DL (0.2-1.0); WBC,Urine 12 /HPF (0-6)
[2020-03-05 23:25] LABS: Barbiturates Screen,Urine Negative (Negative); Benzodiazepines Screen,Urine Negative (Negative); Cannabinoid Screen,Urine Negative (Negative); Opiate Screen,Urine Negative (Negative); Phencyclidine Screen,Urine Negative (Negative)
[2020-03-05] MEDS ORDERED: AMPICILLIN/SULBACTAM 3,000 MG in SODIUM CHLORIDE 0.9% 100 ML IV STA (23:30)
[2020-03-05] MEDS ORDERED: ONDANSETRON 4 MG/2 ML VIAL IV PRN (23:53)
[2020-03-06] MEDS: SODIUM CHLORIDE 0.9% 1,000 ML IV SCH ×2 (00:38→18:55)
[2020-03-06 00:40] LABS: Anisocytosis 1+; Band Neutrophils 2 % (0-10); Lymphocytes 5 % (20-55); Platelet Estimate Normal; Segmented Neutrophils 90 % (50-85); Total Cells Counted 100
[2020-03-06 08:13] LABS: Basophils % 0.3 % (0.0-0.8); Eosinophils % 0.1 % (0.00-10.9); Hematocrit 32.8 VOL% (42.0-52.0); Hemoglobin 10.8 GM/DL (14.0-18.0); Immature Granulocytes % 1.3 %; Immature Granulocytes Absolute 0.15 #; Lymphocytes # 0.6 10*3/uL (1.4-4.0); Lymphocytes % 4.8 % (21.2-54.2); Mean Corpuscular HGB Conc 32.9 GM/DL (32-36); Mean Corpuscular Volume 85.9 FL (87-102); Mean Platelet Volume 9.4 FL (9.6-12.0); Monocytes % 4.8 % (1.7-12.7); Neutrophils % 88.7 % (38.7-73.9); Platelet Count 157 T/CUMM (130-400); Red Blood Count 3.82 MC/CUMM (3.8-5.5); Red Cell Distribution Width 14.3 % (9.3-17.3)
[2020-03-06 08:35] LABS: Band Neutrophils 2 % (0-10); Hypochromasia 1+; Lymphocytes 1 % (20-55); Microcytosis Slight; Platelet Estimate Adequate; Segmented Neutrophils 90 % (50-85); Total Cells Counted 100
[2020-03-06 08:37] LABS: Calcium 8.4 MG/DL (8.5-10.1); Osmolality,Calculated 263.7 MOS/KG (273-304)
[2020-03-06] MEDS: PANTOPRAZOLE 40 MG TABLET PO SCH (09:07)
[2020-03-06] MEDS ORDERED: POTASSIUM CHLORIDE 10 MEQ TABLET PO SCH (12:39)
[2020-03-06] MEDS ORDERED: TAMSULOSIN 0.4 MG CAPSULE PO SCH (12:39)
[2020-03-06] MEDS: METOPROLOL SUCCINATE XL 25 MG TABLET PO SCH (20:58)
[2020-03-06] MEDS: QUEtiapine 25 MG TABLET PO SCH (20:58)
[2020-03-06] MEDS: ENOXAPARIN 40 MG/0.4 ML SYRINGE SUBCUT SCH (20:59)
[2020-03-06] MEDS: POTASSIUM CHLORIDE 10 MEQ TABLET PO SCH (20:59)
[2020-03-06] MEDS: TAMSULOSIN 0.4 MG CAPSULE PO SCH (20:59)
[2020-03-06] MEDS: SIMVASTATIN 20 MG TABLET PO SCH (20:59)
[2020-03-06] MEDS: cefTRIAXone 1,000 MG in SYRINGE 1 EACH IV SCH (21:29)
[2020-03-07] MEDS: METOPROLOL SUCCINATE XL 25 MG TABLET PO SCH ×2 (08:05→21:48)
[2020-03-07] MEDS: DUTASTERIDE 0.5 MG CAPSULE PO SCH (08:05)
[2020-03-07] MEDS: TAMSULOSIN 0.4 MG CAPSULE PO SCH ×2 (08:06→21:47)
[2020-03-07] MEDS: PANTOPRAZOLE 40 MG TABLET PO SCH (08:06)
[2020-03-07] MEDS: POTASSIUM CHLORIDE 10 MEQ TABLET PO SCH ×2 (08:07→21:47)
[2020-03-07] MEDS: SODIUM CHLORIDE 0.9% 1,000 ML IV SCH ×2 (09:19→23:40)
[2020-03-07] MEDS: QUEtiapine 25 MG TABLET PO SCH (21:47)
[2020-03-07] MEDS: ENOXAPARIN 40 MG/0.4 ML SYRINGE SUBCUT SCH (21:47)
[2020-03-07] MEDS: HALOPERIDOL 5 MG/ML AMP IM PRN (21:48)
[2020-03-07] MEDS: SIMVASTATIN 20 MG TABLET PO SCH (21:48)
[2020-03-07] MEDS: cefTRIAXone 1,000 MG in SYRINGE 1 EACH IV SCH (22:24)
[2020-03-08] MEDS: POTASSIUM CHLORIDE 10 MEQ TABLET PO SCH ×2 (08:12→21:31)
[2020-03-08] MEDS: PANTOPRAZOLE 40 MG TABLET PO SCH (08:12)
[2020-03-08] MEDS: TAMSULOSIN 0.4 MG CAPSULE PO SCH ×2 (08:12→21:31)
[2020-03-08] MEDS: METOPROLOL SUCCINATE XL 25 MG TABLET PO SCH ×2 (08:13→21:31)
[2020-03-08] MEDS: DUTASTERIDE 0.5 MG CAPSULE PO SCH (08:13)
[2020-03-08] MEDS: SODIUM CHLORIDE 0.9% 1,000 ML IV SCH (11:55)
[2020-03-08] MEDS: HALOPERIDOL 5 MG/ML AMP IM PRN (13:22)
[2020-03-08] MEDS: cefTRIAXone 1,000 MG in SYRINGE 1 EACH IV SCH (20:54)
[2020-03-08] MEDS: QUEtiapine 25 MG TABLET PO SCH (21:31)
[2020-03-08] MEDS: SIMVASTATIN 20 MG TABLET PO SCH (21:31)
[2020-03-08] MEDS: ENOXAPARIN 40 MG/0.4 ML SYRINGE SUBCUT SCH (21:31)
[2020-03-09] MEDS ORDERED: ACETAMINOPHEN 325 MG TABLET PO PRN (04:47)
[2020-03-09 05:47] LABS: Basophils % 0.3 % (0.0-0.8); Eosinophils # 0.4 10*3/uL (0.0-0.87); Eosinophils % 4.3 % (0.00-10.9); Hematocrit 30.3 VOL% (42.0-52.0); Hemoglobin 10.1 GM/DL (14.0-18.0); Immature Granulocytes % 1.2 %; Immature Granulocytes Absolute 0.11 #; Lymphocytes # 0.7 10*3/uL (1.4-4.0); Lymphocytes % 7.8 % (21.2-54.2); Mean Corpuscular HGB Conc 33.3 GM/DL (32-36); Mean Corpuscular Volume 85.1 FL (87-102); Mean Platelet Volume 9.5 FL (9.6-12.0); Monocytes % 8.2 % (1.7-12.7); Neutrophils % 78.2 % (38.7-73.9); Platelet Count 202 T/CUMM (130-400); Red Blood Count 3.56 MC/CUMM (3.8-5.5); Red Cell Distribution Width 14.1 % (9.3-17.3); White Blood Count 9.1 T/CUMM (4-12)
[2020-03-09 06:04] LABS: Calcium 8.2 MG/DL (8.5-10.1); Osmolality,Calculated 272.1 MOS/KG (273-304)
[2020-03-09] MEDS: SODIUM CHLORIDE 0.9% 1,000 ML IV SCH (09:12)
[2020-03-09] MEDS: POTASSIUM CHLORIDE 10 MEQ TABLET PO SCH ×2 (09:15→21:23)
[2020-03-09] MEDS: PANTOPRAZOLE 40 MG TABLET PO SCH (09:16)
[2020-03-09] MEDS: DUTASTERIDE 0.5 MG CAPSULE PO SCH (09:16)
[2020-03-09] MEDS: METOPROLOL SUCCINATE XL 25 MG TABLET PO SCH ×2 (09:16→21:24)
[2020-03-09] MEDS: TAMSULOSIN 0.4 MG CAPSULE PO SCH ×2 (09:16→21:24)
[2020-03-09] MEDS: POTASSIUM CHLORIDE RIDER 10 MEQ in PREMIX 1 EACH IV SCH ×3 (10:33→12:46)
[2020-03-09] MEDS: QUEtiapine 25 MG TABLET PO SCH (21:24)
[2020-03-09] MEDS: cefTRIAXone 1,000 MG in SYRINGE 1 EACH IV SCH (21:24)
[2020-03-09] MEDS: SIMVASTATIN 20 MG TABLET PO SCH (21:24)
[2020-03-09] MEDS: ENOXAPARIN 40 MG/0.4 ML SYRINGE SUBCUT SCH (21:24)
[2020-03-10] MEDS: SODIUM CHLORIDE 0.9% 1,000 ML IV SCH ×2 (03:00→15:14)
[2020-03-10 05:20] LABS: Basophils % 0.3 % (0.0-0.8); Eosinophils # 0.2 10*3/uL (0.0-0.87); Eosinophils % 2.4 % (0.00-10.9); Hematocrit 30.5 VOL% (42.0-52.0); Hemoglobin 10.1 GM/DL (14.0-18.0); Immature Granulocytes Absolute 0.17 #; Lymphocytes # 0.8 10*3/uL (1.4-4.0); Lymphocytes % 8.7 % (21.2-54.2); Mean Corpuscular HGB Conc 33.1 GM/DL (32-36); Monocytes % 8.1 % (1.7-12.7); Neutrophils % 78.5 % (38.7-73.9); Platelet Count 261 T/CUMM (130-400); Red Blood Count 3.59 MC/CUMM (3.8-5.5); Red Cell Distribution Width 14.2 % (9.3-17.3); White Blood Count 8.6 T/CUMM (4-12)
[2020-03-10 05:55] LABS: Albumin 1.6 G/DL (3.4-5.0); Bilirubin,Total 0.5 MG/DL (0.2-1.0); Calcium 8.5 MG/DL (8.5-10.1); Osmolality,Calculated 274.8 MOS/KG (273-304); Total Protein 6.3 G/DL (6.4-8.3)
[2020-03-10] MEDS: TAMSULOSIN 0.4 MG CAPSULE PO SCH ×2 (08:45→20:26)
[2020-03-10] MEDS: PANTOPRAZOLE 40 MG TABLET PO SCH (08:45)
[2020-03-10] MEDS: POTASSIUM CHLORIDE 10 MEQ TABLET PO SCH ×2 (08:45→20:26)
[2020-03-10] MEDS: DUTASTERIDE 0.5 MG CAPSULE PO SCH (08:45)
[2020-03-10] MEDS: METOPROLOL SUCCINATE XL 25 MG TABLET PO SCH ×2 (08:45→20:27)
[2020-03-10] MEDS: ENOXAPARIN 40 MG/0.4 ML SYRINGE SUBCUT SCH (20:26)
[2020-03-10] MEDS: QUEtiapine 25 MG TABLET PO SCH (20:27)
[2020-03-10] MEDS: SIMVASTATIN 20 MG TABLET PO SCH (20:27)
[2020-03-10] MEDS: cefTRIAXone 1,000 MG in SYRINGE 1 EACH IV SCH (20:27)
[2020-03-11 05:19] LABS: Basophils % 0.3 % (0.0-0.8); Eosinophils # 0.2 10*3/uL (0.0-0.87); Eosinophils % 2.5 % (0.00-10.9); Hematocrit 31.9 VOL% (42.0-52.0); Hemoglobin 10.2 GM/DL (14.0-18.0); Immature Granulocytes % 2.6 %; Immature Granulocytes Absolute 0.24 #; Lymphocytes # 0.7 10*3/uL (1.4-4.0); Lymphocytes % 7.8 % (21.2-54.2); Mean Corpuscular Volume 88.1 FL (87-102); Mean Platelet Volume 8.8 FL (9.6-12.0); Monocytes % 7.9 % (1.7-12.7); Neutrophils % 78.9 % (38.7-73.9); Platelet Count 304 T/CUMM (130-400); Red Blood Count 3.62 MC/CUMM (3.8-5.5); Red Cell Distribution Width 14.4 % (9.3-17.3); White Blood Count 9.3 T/CUMM (4-12)
[2020-03-11 05:52] LABS: Calcium 8.4 MG/DL (8.5-10.1); Osmolality,Calculated 282.4 MOS/KG (273-304)
[2020-03-11 06:00] LABS: Band Neutrophils 4 % (0-10); Eosinophils 2 % (0-10); Hypochromasia 1+; Lymphocytes 8 % (20-55); Platelet Estimate Adequate; Segmented Neutrophils 81 % (50-85); Total Cells Counted 100
[2020-03-11] MEDS: SODIUM CHLORIDE 0.9% 1,000 ML IV SCH ×2 (06:29→17:03)
[2020-03-11] MEDS: POTASSIUM CHLORIDE 10 MEQ TABLET PO SCH ×2 (08:44→20:47)
[2020-03-11] MEDS: PANTOPRAZOLE 40 MG TABLET PO SCH (08:44)
[2020-03-11] MEDS: DUTASTERIDE 0.5 MG CAPSULE PO SCH (08:45)
[2020-03-11] MEDS: METOPROLOL SUCCINATE XL 25 MG TABLET PO SCH ×2 (08:45→21:32)
[2020-03-11] MEDS: TAMSULOSIN 0.4 MG CAPSULE PO SCH ×2 (08:45→20:47)
[2020-03-11] MEDS: SIMVASTATIN 20 MG TABLET PO SCH (20:46)
[2020-03-11] MEDS: ENOXAPARIN 40 MG/0.4 ML SYRINGE SUBCUT SCH (20:46)
[2020-03-11] MEDS: QUEtiapine 25 MG TABLET PO SCH (20:47)
[2020-03-11] MEDS: cefTRIAXone 1,000 MG in SYRINGE 1 EACH IV SCH (20:48)
[2020-03-12 03:26] LABS: Basophils % 0.3 % (0.0-0.8); Eosinophils # 0.2 10*3/uL (0.0-0.87); Hematocrit 31.3 VOL% (42.0-52.0); Immature Granulocytes % 2.2 %; Immature Granulocytes Absolute 0.25 #; Lymphocytes # 0.8 10*3/uL (1.4-4.0); Lymphocytes % 7.3 % (21.2-54.2); Mean Corpuscular HGB Conc 31.9 GM/DL (32-36); Mean Corpuscular Volume 87.7 FL (87-102); Mean Platelet Volume 8.9 FL (9.6-12.0); Monocytes % 5.9 % (1.7-12.7); Neutrophils % 82.3 % (38.7-73.9); Platelet Count 323 T/CUMM (130-400); Red Blood Count 3.57 MC/CUMM (3.8-5.5); Red Cell Distribution Width 14.4 % (9.3-17.3); White Blood Count 11.3 T/CUMM (4-12)
[2020-03-12 03:41] LABS: Calcium 8.1 MG/DL (8.5-10.1); Osmolality,Calculated 272.1 MOS/KG (273-304)
[2020-03-12 04:07] LABS: Platelet Estimate Normal
[2020-03-12] MEDS: SODIUM CHLORIDE 0.9% 1,000 ML IV SCH (06:49)
[2020-03-12] MEDS: DUTASTERIDE 0.5 MG CAPSULE PO SCH (08:45)
[2020-03-12] MEDS: PANTOPRAZOLE 40 MG TABLET PO SCH (08:45)
[2020-03-12] MEDS: METOPROLOL SUCCINATE XL 25 MG TABLET PO SCH ×2 (08:46→20:54)
[2020-03-12] MEDS: TAMSULOSIN 0.4 MG CAPSULE PO SCH ×2 (08:46→20:54)
[2020-03-12] MEDS: POTASSIUM CHLORIDE 10 MEQ TABLET PO SCH ×2 (08:46→20:54)
[2020-03-12] MEDS: cefTRIAXone 1,000 MG in SYRINGE 1 EACH IV SCH (20:54)
[2020-03-12] MEDS: ENOXAPARIN 40 MG/0.4 ML SYRINGE SUBCUT SCH (20:54)
[2020-03-12] MEDS: SIMVASTATIN 20 MG TABLET PO SCH (20:54)
[2020-03-12] MEDS: QUEtiapine 25 MG TABLET PO SCH (22:44)
[2020-03-13 04:59] LABS: Basophils # 0.1 10*3/uL (0.0-0.2); Basophils % 0.6 % (0.0-0.8); Eosinophils # 0.5 10*3/uL (0.0-0.87); Eosinophils % 4.6 % (0.00-10.9); Hematocrit 29.4 VOL% (42.0-52.0); Hemoglobin 9.7 GM/DL (14.0-18.0); Immature Granulocytes % 2.3 %; Immature Granulocytes Absolute 0.23 #; Lymphocytes % 9.6 % (21.2-54.2); Mean Corpuscular Volume 85.2 FL (87-102); Mean Platelet Volume 8.7 FL (9.6-12.0); Monocytes % 5.6 % (1.7-12.7); Neutrophils % 77.3 % (38.7-73.9); Platelet Count 301 T/CUMM (130-400); Red Blood Count 3.45 MC/CUMM (3.8-5.5); Red Cell Distribution Width 14.4 % (9.3-17.3); White Blood Count 9.9 T/CUMM (4-12)
[2020-03-13 05:13] LABS: Calcium 7.9 MG/DL (8.5-10.1)
[2020-03-13] MEDS: POTASSIUM CHLORIDE RIDER 10 MEQ in PREMIX 1 EACH IV SCH ×3 (09:48→14:08)
[2020-03-13] MEDS: METOPROLOL SUCCINATE XL 25 MG TABLET PO SCH ×2 (09:48→21:12)
[2020-03-13] MEDS: POTASSIUM CHLORIDE 10 MEQ TABLET PO SCH ×2 (09:49→21:11)
[2020-03-13] MEDS: DUTASTERIDE 0.5 MG CAPSULE PO SCH (09:49)
[2020-03-13] MEDS: TAMSULOSIN 0.4 MG CAPSULE PO SCH ×2 (09:50→21:11)
[2020-03-13] MEDS: PANTOPRAZOLE 40 MG TABLET PO SCH (09:50)
[2020-03-13] MEDS: cefTRIAXone 1,000 MG in SYRINGE 1 EACH IV SCH (21:11)
[2020-03-13] MEDS: ENOXAPARIN 40 MG/0.4 ML SYRINGE SUBCUT SCH (21:11)
[2020-03-13] MEDS: QUEtiapine 25 MG TABLET PO SCH (21:12)
[2020-03-13] MEDS: SIMVASTATIN 20 MG TABLET PO SCH (21:12)
[2020-03-14 06:47] LABS: Basophils % 0.5 % (0.0-0.8); Eosinophils # 0.5 10*3/uL (0.0-0.87); Eosinophils % 5.5 % (0.00-10.9); Hematocrit 29.8 VOL% (42.0-52.0); Hemoglobin 10.1 GM/DL (14.0-18.0); Immature Granulocytes Absolute 0.17 #; Lymphocytes # 0.9 10*3/uL (1.4-4.0); Lymphocytes % 10.1 % (21.2-54.2); Mean Corpuscular HGB Conc 33.9 GM/DL (32-36); Mean Corpuscular Volume 83.9 FL (87-102); Mean Platelet Volume 8.9 FL (9.6-12.0); Monocytes % 5.4 % (1.7-12.7); Neutrophils % 76.5 % (38.7-73.9); Platelet Count 314 T/CUMM (130-400); Red Blood Count 3.55 MC/CUMM (3.8-5.5); Red Cell Distribution Width 14.2 % (9.3-17.3); White Blood Count 8.7 T/CUMM (4-12)
[2020-03-14 07:15] LABS: Calcium 7.8 MG/DL (8.5-10.1); Osmolality,Calculated 274.5 MOS/KG (273-304)
[2020-03-14] MEDS: TAMSULOSIN 0.4 MG CAPSULE PO SCH ×2 (08:14→20:33)
[2020-03-14] MEDS: PANTOPRAZOLE 40 MG TABLET PO SCH (08:14)
[2020-03-14] MEDS: DUTASTERIDE 0.5 MG CAPSULE PO SCH (08:14)
[2020-03-14] MEDS: POTASSIUM CHLORIDE 10 MEQ TABLET PO SCH ×2 (08:14→20:33)
[2020-03-14] MEDS: METOPROLOL SUCCINATE XL 25 MG TABLET PO SCH ×2 (08:14→20:33)
[2020-03-14] MEDS: SIMVASTATIN 20 MG TABLET PO SCH (20:33)
[2020-03-14] MEDS: ENOXAPARIN 40 MG/0.4 ML SYRINGE SUBCUT SCH (20:33)
[2020-03-14] MEDS: QUEtiapine 25 MG TABLET PO SCH (20:33)
[2020-03-15] MEDS: TAMSULOSIN 0.4 MG CAPSULE PO SCH ×2 (08:43→21:13)
[2020-03-15] MEDS: POTASSIUM CHLORIDE 10 MEQ TABLET PO SCH ×2 (08:44→21:14)
[2020-03-15] MEDS: METOPROLOL SUCCINATE XL 25 MG TABLET PO SCH ×2 (08:44→21:14)
[2020-03-15] MEDS: PANTOPRAZOLE 40 MG TABLET PO SCH (08:44)
[2020-03-15] MEDS: DUTASTERIDE 0.5 MG CAPSULE PO SCH (08:44)
[2020-03-15] MEDS: QUEtiapine 25 MG TABLET PO SCH (21:14)
[2020-03-15] MEDS: ENOXAPARIN 40 MG/0.4 ML SYRINGE SUBCUT SCH (21:14)
[2020-03-15] MEDS: SIMVASTATIN 20 MG TABLET PO SCH (21:14)
[2020-03-16] MEDS: PANTOPRAZOLE 40 MG TABLET PO SCH (08:28)
[2020-03-16] MEDS: METOPROLOL SUCCINATE XL 25 MG TABLET PO SCH (08:29)
[2020-03-16] MEDS: TAMSULOSIN 0.4 MG CAPSULE PO SCH (08:29)
[2020-03-16] MEDS: POTASSIUM CHLORIDE 10 MEQ TABLET PO SCH (08:29)
[2020-03-16] MEDS: DUTASTERIDE 0.5 MG CAPSULE PO SCH (08:30)
[2020-03-16 11:55] VITALS: BP 115/70
== END 2020-03-16 12:28 | disposition hospice, inpatient (51) | DRG 374 ==
LOC: EDUNIT# → N.ED 21:24 → N.EDINP 21:24 → N.2E 03-06 12:41
PROVIDERS: ADMIT Family Medicine; ATTEND Family Medicine